=== PATIENT | female | born 1970 ===

== ENCOUNTER 2020-08-16 11:26 | Outpatient (REF) | payer OTHER, SELFPAY ==
[2020-08-16 13:46] LABS: Estimated Average Glucose 269 mg/dL
== END 2020-08-16 11:27 | disposition home or self-care (01) ==
LOC: HO.10HDL 11:26
PROVIDERS: PCP Physician Assistant; Visit Provider Internal Medicine
DX: G89.4 Chronic pain syndrome (principal); M47.812 Spondylosis without myelopathy or radiculopathy, cervical region; M47.816 Spondylosis without myelopathy or radiculopathy, lumbar region
CPT/HCPCS: 36415; 83036; 99202

== ENCOUNTER → 2020-08-26 09:39 | Outpatient (BNVA) | payer OTHER, SELFPAY | PROVIDERS: PCP Physician Assistant; Visit Provider Internal Medicine | DX: G89.4 Chronic pain syndrome (principal) | CPT/HCPCS: 99212 ==

== ENCOUNTER 2020-09-13 11:22 | Outpatient (REF) | payer OTHER, SELFPAY | END 2020-09-13 11:23 | disposition home or self-care (01) | LOC: HO.LAB 11:22 | PROVIDERS: PCP Physician Assistant; Visit Provider Internal Medicine | DX: G89.4 Chronic pain syndrome (principal); Z79.899 Other long term (current) drug therapy | CPT/HCPCS: 99212 ==

== ENCOUNTER → 2020-10-07 11:32 | Outpatient (BNVA) | payer OTHER, SELFPAY | PROVIDERS: PCP Physician Assistant; Visit Provider Internal Medicine | DX: M47.817 Spondylosis without myelopathy or radiculopathy, lumbosacral region (principal); M54.16 Radiculopathy, lumbar region | CPT/HCPCS: 99212 ==

== ENCOUNTER → 2020-11-04 11:30 | Outpatient (BNVA) | payer OTHER, SELFPAY | PROVIDERS: PCP Physician Assistant; Visit Provider Internal Medicine | DX: G89.4 Chronic pain syndrome (principal) | CPT/HCPCS: 99212 ==

== ENCOUNTER → 2020-12-06 09:44 | Outpatient (BNVA) | payer OTHER, SELFPAY | PROVIDERS: PCP Physician Assistant; Visit Provider Internal Medicine | DX: Z76.0 Encounter for issue of repeat prescription (principal); G89.4 Chronic pain syndrome; M47.27 Other spondylosis with radiculopathy, lumbosacral region; E11.9 Type 2 diabetes mellitus without complications; Z88.0 Allergy status to penicillin; Z79.84 Long term (current) use of oral hypoglycemic drugs; Z79.899 Other long term (current) drug therapy | CPT/HCPCS: 99212 ==

== ENCOUNTER → 2020-12-13 11:30 | Outpatient (BNVA) | payer OTHER, SELFPAY | PROVIDERS: PCP Physician Assistant; Visit Provider Internal Medicine | DX: M47.27 Other spondylosis with radiculopathy, lumbosacral region (principal); M79.18 Myalgia, other site; Z88.0 Allergy status to penicillin | CPT/HCPCS: 20553 ==

== ENCOUNTER → 2020-12-30 11:37 | Outpatient (BNVA) | payer OTHER, SELFPAY | PROVIDERS: Visit Provider Internal Medicine | DX: M47.817 Spondylosis without myelopathy or radiculopathy, lumbosacral region (principal); M54.16 Radiculopathy, lumbar region; G89.4 Chronic pain syndrome; Z51.81 Encounter for therapeutic drug level monitoring | CPT/HCPCS: 99212 ==

== ENCOUNTER → 2021-01-27 11:29 | Outpatient (BNVA) | payer OTHER, SELFPAY | PROVIDERS: Visit Provider Internal Medicine | DX: Z51.81 Encounter for therapeutic drug level monitoring (principal); M79.18 Myalgia, other site; G89.4 Chronic pain syndrome | CPT/HCPCS: 99212 ==

== ENCOUNTER → 2021-02-24 11:29 | Outpatient (BNVA) | payer OTHER, SELFPAY | PROVIDERS: Visit Provider Internal Medicine | DX: Z51.81 Encounter for therapeutic drug level monitoring (principal); F11.20 Opioid dependence, uncomplicated; M47.817 Spondylosis without myelopathy or radiculopathy, lumbosacral region; M79.18 Myalgia, other site | CPT/HCPCS: 99212 ==

== ENCOUNTER → 2021-03-28 10:55 | Outpatient (BNVA) | payer OTHER, SELFPAY | PROVIDERS: PCP Physician Assistant; Visit Provider Internal Medicine | DX: Z51.81 Encounter for therapeutic drug level monitoring (principal); M47.817 Spondylosis without myelopathy or radiculopathy, lumbosacral region; M79.18 Myalgia, other site; M54.16 Radiculopathy, lumbar region | CPT/HCPCS: 99212 ==

== ENCOUNTER → 2021-04-25 11:30 | Outpatient (BNVA) | payer OTHER, SELFPAY | PROVIDERS: PCP Physician Assistant; Visit Provider Internal Medicine | DX: M47.817 Spondylosis without myelopathy or radiculopathy, lumbosacral region (principal); M79.18 Myalgia, other site; M54.16 Radiculopathy, lumbar region; M25.512 Pain in left shoulder; M54.2 Cervicalgia; G89.4 Chronic pain syndrome | CPT/HCPCS: 99212 ==

== ENCOUNTER → 2021-05-23 11:01 | Outpatient (BNVA) | payer OTHER, SELFPAY | PROVIDERS: PCP Physician Assistant; Visit Provider Nurse Practitioner Family | DX: Z13.89 Encounter for screening for other disorder (principal) ==

== ENCOUNTER → 2021-06-16 11:21 | Outpatient (BNVA) | payer OTHER, SELFPAY | PROVIDERS: PCP Physician Assistant; Visit Provider Internal Medicine | DX: Z51.81 Encounter for therapeutic drug level monitoring (principal); Z79.899 Other long term (current) drug therapy | CPT/HCPCS: 99211 ==

== ENCOUNTER → 2021-08-15 11:41 | Outpatient (BNVA) | payer OTHER, SELFPAY | PROVIDERS: PCP Physician Assistant; Visit Provider Nurse Practitioner Family | DX: Z51.81 Encounter for therapeutic drug level monitoring (principal); F11.20 Opioid dependence, uncomplicated | CPT/HCPCS: 99211 ==

== ENCOUNTER → 2021-10-17 11:02 | Outpatient (BNVA) | payer OTHER, SELFPAY | PROVIDERS: PCP Physician Assistant; Visit Provider Internal Medicine | DX: G89.4 Chronic pain syndrome (principal) | CPT/HCPCS: 99212 ==

== ENCOUNTER → 2021-12-12 10:58 | Outpatient (BNVA) | payer OTHER, SELFPAY | PROVIDERS: PCP Physician Assistant; Visit Provider Internal Medicine | DX: Z51.81 Encounter for therapeutic drug level monitoring (principal); F11.20 Opioid dependence, uncomplicated; M79.18 Myalgia, other site; M25.512 Pain in left shoulder; M54.2 Cervicalgia; G89.4 Chronic pain syndrome | CPT/HCPCS: 99212 ==

== ENCOUNTER → 2022-04-17 11:00 | Outpatient (BNVA) | payer OTHER, SELFPAY | PROVIDERS: PCP Physician Assistant; Visit Provider Internal Medicine | DX: Z51.81 Encounter for therapeutic drug level monitoring (principal); F11.20 Opioid dependence, uncomplicated; G89.4 Chronic pain syndrome | CPT/HCPCS: 99212 ==

== ENCOUNTER → 2022-06-12 11:01 | Outpatient (BNVA) | payer OTHER, SELFPAY | PROVIDERS: PCP Physician Assistant; Visit Provider Internal Medicine | DX: Z51.81 Encounter for therapeutic drug level monitoring (principal); Z79.899 Other long term (current) drug therapy | CPT/HCPCS: 99211 ==

== ENCOUNTER → 2022-08-07 11:04 | Outpatient (BNVA) | payer OTHER, SELFPAY | PROVIDERS: PCP Physician Assistant; Visit Provider Internal Medicine | DX: Z51.81 Encounter for therapeutic drug level monitoring (principal); F11.20 Opioid dependence, uncomplicated; M54.16 Radiculopathy, lumbar region; M47.817 Spondylosis without myelopathy or radiculopathy, lumbosacral region; M79.18 Myalgia, other site; M54.2 Cervicalgia; G89.4 Chronic pain syndrome | CPT/HCPCS: 99212 ==

== ENCOUNTER 2022-10-09 11:08 | Outpatient (AMB) | payer OTHER, SELFPAY ==
--- NOTE | 2022-10-09 11:21 | A.OFFVIS_ITS ---
Intake Vital Signs 10/09/22 11:22 Height 5 ft 5 in Weight 198 lb BMI 32.9 BP 145/82 H Blood Pressure Location Lt brachial Position Sitting Respiration 14 Pulse 83 Pulse Source Pulse Oximeter Intake Visit Reasons: Med count Allergies penicillin G Allergy (Verified 06/12/22 11:07) unknown Medication List - Last Reconciled 10/09/22 by Nancy Winn LPN albuterol sulfate 90 mcg/actuation 2 puffs inhalation Q6H PRN aspirin 81 mg PO DAILY atorvastatin 40 mg PO DAILY buprenorphine HCl (Belbuca) 900 mcg buccal Q12H 30 days buspirone 10 mg PO BID calcium carbonate-vitamin D3 200 mg (500 mg) -400 unit tabs PO .twice a day calcium carbonate-vitamin D3 600 mg-10 mcg (400 unit) 1 tab PO BID cetirizine (Zyrtec) 10 mg PO DAILY PRN chlorzoxazone 500 mg PO TID conj estrog-medroxyprogest amrit 0.625-2.5 mg (Prempro) 1 tab PO DAILY docusate sodium 100 mg PO BID dulaglutide (Trulicity) 0.75 mg subcut QWEEK fluoxetine 20 mg PO DAILY fluticasone furoate-vilanterol 200-25 mcg/dose (Breo Ellipta) 1 inh inhalation DAILY losartan 25 mg PO DAILY metformin ER 1,000 mg PO BID mometasone 50 mcg/actuation 2 sprays intranasal DAILY montelukast 10 mg PO DAILY nabumetone 750 mg PO BID PRN 30 days olmesartan 20 mg PO BEDTIME HPI Med count HPI Details 52-year-old female presenting today for a medication count. 52 films were expected, and 51 films were presented. The patient underwent a CT scan that was ordered by her primary care physician. She has been experiencing back and leg pain. She reports worsening pain with walking. She has difficulty lying down on the bed for prolonged periods of time. She has been using a recliner at home. She suspects that the pain is from her sciatica. She states that she was physically active in the past but is now unable to walk or perform exercises due to pain. Her pain is alleviated by sitting down or bending forward on the cart. She states that her pain worsens when standing from the sitting position. She recently started taking Trulicity. [facility]MERLY [facility], [facility] Medical History (Updated 04/25/21 @ 11:48 by Dontrell Don MD) Left shoulder pain Lumbar and sacral spondyloarthritis Lumbar radiculopathy Myofascial pain on left side Neck pain on left side Review of Systems Const All systems reviewed & are unremarkable except as noted in HPI and below Physical Exam Vital Signs: Last Vital Signs Pulse 83 10/09/22 11:22 Resp 14 10/09/22 11:22 BP 145/82 H 10/09/22 11:22 BMI result Body Mass Index 32.9 General: Appears afebrile. Alert and oriented. Mood and affect appropriate. Follows and participates in conversation appropriately. Respiratory effort is unlabored. Able to transition from sit to stand unassisted. Ambulates with bilaterally normal heel strike and toe off. Results Reviewed Results Reviewed: CT LUMBAR SPINE WITHOUT CONTRAST FINDINGS: Moderate left convex curvature of the lumbar spine. Mild right lateral translation of L1 on L2. Mild left lateral translation of L4 on L5. Otherwise, normal anatomic alignment. No evidence of acute fracture or traumatic subluxation. The vertebral body heights are maintained. Advanced degenerative disc disease at L4-L5. Moderate degenerative disc disease at all additional lumbar levels. No suspicious lytic or sclerotic osseous lesions. No significant abnormalities of the paraspinal musculature. There is a 1.6 cm lesion with macroscopic adipose tissue associated with the medial arm of the right adrenal gland consistent with underlying myelolipoma (no follow-up imaging recommended based on current guidelines at the time of examination). Partially visualized 0.8 cm nonobstructive stone in the lower pole the left kidney. Moderate right-sided perinephric cysts without demonstrated overt hydronephrosis (no follow-up imaging recommended based on current guidelines at the time of examination). Otherwise, limited evaluation of the intra-abdominal structures without significant abnormalities. The abdominal aorta is of normal contour and caliber with moderate calcific atherosclerotic disease. AXIAL SPINAL LEVELS: L1-L2: Mild diffuse disc bulge. There is mild bilateral facet joint arthropathy. There is no neural foraminal stenosis. There is no spinal canal stenosis. L2-L3: Mild diffuse disc bulge with posterior osseous ridging. There is mild bilateral facet joint arthropathy. There is mild right and no left neural foraminal stenosis. There appears to be stenosis of the subarticular zones with no overt spinal canal stenosis centrally. L3-L4: Moderate diffuse disc bulge with posterior osseous ridging. There is moderate bilateral facet joint arthropathy. There is moderate right worse than left neural foraminal stenosis. There appears to be stenosis of the subarticular zones with moderate spinal canal stenosis centrally. L4-L5: Moderate diffuse disc bulge with posterior osseous ridging. There is moderate bilateral facet joint arthropathy. There is mild bilateral neural foraminal stenosis. There appears to be narrowing of the subarticular zones with no overt spinal canal stenosis centrally. L5-S1: Mild diffuse disc bulge. There is moderate left and mild right facet joint arthropathy. There is moderate left and mild right neural foraminal stenosis. There is no demonstrated spinal canal stenosis. IMPRESSION: 1. No evidence of acute fracture or traumatic subluxation of the lumbar spine. 2. Moderate multilevel degenerative spondyloarthropathy of the lumbar spine as described in detail above. Most notably on this limited exam without intrathecal contrast, there appears to be moderate spinal canal stenosis at L3-L4. Stenoses/stenoses of the subarticular zones at L2-L3 and L4-L5. Moderate neural foraminal stenoses from L3-S1. 3. Partially visualized nonobstructive left-sided nephrolithiasis. Assessment & Plan Assessment & Plan (1) Neck pain on left side: Code(s): M54.2 - Cervicalgia (2) Left shoulder pain: Code(s): M25.512 - Pain in left shoulder (3) Lumbar and sacral spondyloarthritis: Code(s): M47.817 - Spondylosis without myelopathy or radiculopathy, lumbosacral region (4) Lumbar radiculopathy: Code(s): M54.16 - Radiculopathy, lumbar region (5) Chronic pain syndrome: Code(s): G89.4 - Chronic pain syndrome Plan 1. 52 films were expected, and 51 films were presented. A refill of Buprenorphine HCL 900 mcg was provided to the patient for one month starting 10/08/22 with 1 refill. Mass Pat was consistent. 2. Discussed MILD procedure at L3-4 levels vs. spinal cord stimulator as possible treatment options. A device brochure was provided to the patient. The patient will let us know if she wants to proceed with either of these modalities. We can consider MR imaging at that point prior to any interventional procedure. Scribed for Dr. Don by Abraham Jarvis, durable medical equipment repairer, on 10/09/2022. I, Dr. Don, have personally reviewed and agree with the information entered by the scribe. Medications: Refilled buprenorphine HCl (Belbuca) 900 mcg buccal Q12H 60 ea 1RF pain 30 days G89.4 - Chronic pain syndrome, M47.817 - Spondylosis without myelopathy or radiculopathy, lumbosacral region Coding Level of Care Code Est Pt Level 4 (46798) Diagnoses Neck pain on left side M54.2 Left shoulder pain M25.512 Lumbar and sacral spondyloarthritis M47.817 Lumbar radiculopathy M54.16 Chronic pain syndrome G89.4
[2022-10-09 11:22] VITALS: BP 145/82; PULSE 83; RESP 14; BMI 32.9
== END 2022-10-09 11:47 | disposition home or self-care (01) ==
PROVIDERS: PCP Physician Assistant; Visit Provider Internal Medicine
DX: M54.2 Cervicalgia (principal); M25.512 Pain in left shoulder; M47.817 Spondylosis without myelopathy or radiculopathy, lumbosacral region; M54.16 Radiculopathy, lumbar region; G89.4 Chronic pain syndrome
CPT/HCPCS: 99214

== ENCOUNTER → 2022-10-09 11:08 | Outpatient (BNVA) | payer OTHER, SELFPAY | PROVIDERS: PCP Physician Assistant; Visit Provider Internal Medicine | DX: M47.27 Other spondylosis with radiculopathy, lumbosacral region (principal); M79.18 Myalgia, other site; G89.4 Chronic pain syndrome; M25.512 Pain in left shoulder; M54.2 Cervicalgia; Z79.891 Long term (current) use of opiate analgesic | CPT/HCPCS: 99212 ==

== ENCOUNTER 2022-12-11 11:00 | Outpatient (AMB) | payer OTHER, SELFPAY ==
--- NOTE | 2022-12-11 11:03 | A.OFFVIS_ITS ---
Intake Vital Signs 12/11/22 11:04 Height 5 ft 5 in Weight 197 lb BMI 32.8 Blood Pressure Location Lt brachial Position Sitting Respiration 14 Pulse Source Pulse Oximeter Oxygen Delivery Method Room Air Intake Visit Reasons: Med count Intake Note: Pt states she last took Belbuca 12/11/22 @ 8:30am Allergies penicillin G Allergy (Verified 12/11/22 11:06) unknown Medication List - Last Reconciled 12/11/22 by Nancy Winn LPN albuterol sulfate 90 mcg/actuation 2 puffs inhalation Q6H PRN aspirin 81 mg PO DAILY atorvastatin 40 mg PO DAILY buprenorphine HCl (Belbuca) 900 mcg buccal Q12H 30 days buspirone 10 mg PO BID calcium carbonate-vitamin D3 200 mg (500 mg) -400 unit tabs PO .twice a day calcium carbonate-vitamin D3 600 mg-10 mcg (400 unit) 1 tab PO BID cetirizine (Zyrtec) 10 mg PO DAILY PRN chlorzoxazone 500 mg PO TID conj estrog-medroxyprogest amrit 0.625-2.5 mg (Prempro) 1 tab PO DAILY docusate sodium 100 mg PO BID dulaglutide (Trulicity) 0.75 mg subcut QWEEK fluoxetine 20 mg PO DAILY fluticasone furoate-vilanterol 200-25 mcg/dose (Breo Ellipta) 1 inh inhalation DAILY losartan 25 mg PO DAILY metformin ER 1,000 mg PO BID mometasone 50 mcg/actuation 2 sprays intranasal DAILY montelukast 10 mg PO DAILY nabumetone 750 mg PO BID PRN 30 days olmesartan 20 mg PO BEDTIME HPI Med count HPI Details 52-year-old female who presents today to the office for a medication count. 46 films were expected, and 47 films wer e presented. A refill was provided to the patient today. [facility] Medical History (Updated 04/25/21 @ 11:48 by Dontrell Don MD) Neck pain on left side Left shoulder pain Myofascial pain on left side Lumbar radiculopathy Lumbar and sacral spondyloarthritis Review of Systems Const All systems reviewed & are unremarkable except as noted in HPI and below Physical Exam Vital Signs: Last Vital Signs Resp 14 12/11/22 11:04 Oxygen Delivery Method Room Air 12/11/22 11:04 BMI result Body Mass Index 32.8 General: Appears afebrile. Alert and oriented. Mood and affect appropriate. Follows and participates in conversation appropriately. Respiratory effort is unlabored. Able to transition from sit to stand unassisted. Ambulates with bilaterally normal heel strike and toe off. Results Reviewed Results Reviewed: No imaging is available for review. Assessment & Plan Assessment & Plan (1) Chronic pain syndrome: Code(s): G89.4 - Chronic pain syndrome (2) Lumbar and sacral spondyloarthritis: Code(s): M47.817 - Spondylosis without myelopathy or radiculopathy, lumbosacral region Plan 46 films were expected, and 47 films were presented. Mass Pat was consistent. A refill of Buprenorphine HCL 900 mcg was provided to the patient for one month starting 01/03/23 with 1 refill. The patient will follow up in two months for pill count. Scribed for Dr. Don by Abraham Jarvis, medical data analyst, on 12/11/2022. I, Dr. Don, have personally reviewed and agree with the information entered by the scribe. Medications: Refilled buprenorphine HCl (Belbuca) 900 mcg buccal Q12H 60 ea 1RF pain 30 days G89.4 - Chronic pain syndrome, M47.817 - Spondylosis without myelopathy or radiculopathy, lumbosacral region Coding Level of Care Code Est Pt Level 3 (53127) Diagnoses Chronic pain syndrome G89.4 Lumbar and sacral spondyloarthritis M47.817
[2022-12-11 11:04] VITALS: RESP 14; BMI 32.8
== END 2022-12-11 11:18 | disposition home or self-care (01) ==
PROVIDERS: PCP Physician Assistant; Visit Provider Internal Medicine
DX: G89.4 Chronic pain syndrome (principal); M47.817 Spondylosis without myelopathy or radiculopathy, lumbosacral region
CPT/HCPCS: 99213

== ENCOUNTER → 2022-12-11 11:00 | Outpatient (BNVA) | payer OTHER, SELFPAY | PROVIDERS: PCP Physician Assistant; Visit Provider Internal Medicine | DX: G89.4 Chronic pain syndrome (principal); M47.817 Spondylosis without myelopathy or radiculopathy, lumbosacral region; Z79.891 Long term (current) use of opiate analgesic | CPT/HCPCS: 99212 ==

== ENCOUNTER → 2023-02-10 11:09 | Outpatient (BNVA) | payer OTHER, SELFPAY | PROVIDERS: PCP Physician Assistant; Visit Provider Internal Medicine ==

== ENCOUNTER 2023-04-16 10:55 | Outpatient (AMB) | payer OTHER, SELFPAY ==
--- NOTE | 2023-04-16 11:03 | MHC.OFFVIS ---
Intake Vital Signs 04/16/23 11:04 Height 5 ft 5 in Weight 201 lb BMI 33.4 BP 140/86 H Blood Pressure Location Lt brachial Position Sitting Respiration 12 Pulse 93 Pulse Source Pulse Oximeter Pulse Oximetry (%) 98 Oxygen Delivery Method Room Air Intake Visit Reasons: Medication Count Allergies penicillin G Allergy (Verified 12/11/22 11:06) unknown HPI Medication Count HPI Details 52-year-old female who presents today to the office for a medication count. 37 films were expected, and 38 films were presented. A refill was provided to the patient today. She reports the worsening of her radiating pain. She has difficulty lying down and sleeping at night. She states that her pain keeps her awake at night. She used to sleep in the prone position in the past, but she has been unable to do so since her surgery. She also has difficulty walking. She needs a caregiver at home. She also requested a prescription for a cane. She previously had difficulty receiving her prescription from the pharmacy. [facility] Medical History (Updated 04/25/21 @ 11:48 by Dontrell Don MD) Neck pain on left side Left shoulder pain Myofascial pain on left side Lumbar radiculopathy Lumbar and sacral spondyloarthritis Review of Systems Const All systems reviewed & are unremarkable except as noted in HPI and below Physical Exam Vital Signs: Last Vital Signs Pulse 93 04/16/23 11:04 Resp 12 04/16/23 11:04 BP 140/86 H 04/16/23 11:04 Pulse Ox 98 04/16/23 11:04 Oxygen Delivery Method Room Air 04/16/23 11:04 BMI result Body Mass Index 33.4 General: Appears afebrile. Alert and oriented. Mood and affect appropriate. Follows and participates in conversation appropriately. Respiratory effort is unlabored. Able to transition from sit to stand unassisted. Ambulates with bilaterally normal heel strike and toe off. Results Reviewed Results Reviewed: No imaging is available for review. Assessment & Plan Assessment & Plan (1) Chronic pain syndrome: Code(s): G89.4 - Chronic pain syndrome (2) Lumbar and sacral spondyloarthritis: Code(s): M47.817 - Spondylosis without myelopathy or radiculopathy, lumbosacral region Plan 37 films were expected, and 38 films were presented. Mass Pat was consistent. A refill of Buprenorphine HCL 900 mcg was provided to the patient for one month starting 05/04/23 with [address] Don by Abraham Jarvis, medical equipment technician, on 04/16/2023. I, Dr. Don, have personally reviewed and agree with the information entered by the scribe. Medications: Refilled buprenorphine HCl (Belbuca) 900 mcg buccal Q12H 30 days 60 ea 1RF pain G89.4 - Chronic pain syndrome, M47.817 - Spondylosis without myelopathy or radiculopathy, lumbosacral region buprenorphine HCl (Belbuca) 900 mcg buccal Q12H 60 ea 1RF pain 30 days G89.4 - Chronic pain syndrome, M47.817 - Spondylosis without myelopathy or radiculopathy, lumbosacral region Coding Level of Care Code Est Pt Level 3 (48626) Diagnoses Chronic pain syndrome G89.4 Lumbar and sacral spondyloarthritis M47.817
[2023-04-16 11:04] VITALS: BP 140/86; PULSE 93; RESP 12; O2SAT 98; BMI 33.4
== END 2023-04-16 11:23 | disposition home or self-care (01) ==
PROVIDERS: PCP Physician Assistant; Visit Provider Internal Medicine
DX: G89.4 Chronic pain syndrome (principal); M47.817 Spondylosis without myelopathy or radiculopathy, lumbosacral region
CPT/HCPCS: 99213

== ENCOUNTER → 2023-04-16 10:55 | Outpatient (BNVA) | payer OTHER, SELFPAY | PROVIDERS: PCP Physician Assistant; Visit Provider Internal Medicine | DX: G89.4 Chronic pain syndrome (principal); M47.817 Spondylosis without myelopathy or radiculopathy, lumbosacral region; Z79.891 Long term (current) use of opiate analgesic | CPT/HCPCS: 99212 ==

== ENCOUNTER 2023-06-11 10:58 | Outpatient (AMB) | payer OTHER, SELFPAY ==
--- NOTE | 2023-06-11 11:01 | A.OFFVIS_ITS ---
Vital Signs 06/11/23 11:03 Height 5 ft 5 in Weight 199 lb BMI 33.1 BP 149/73 H Blood Pressure Location Lt brachial Position Sitting Respiration 13 Pulse 92 Pulse Source Pulse Oximeter Pulse Oximetry (%) 98 Oxygen Delivery Method Room Air Intake Visit Reasons: Follow-Up // Pill Count Intake Note: Pt states she last took Belbuca 06/11/23 @ 8:30am Allergies penicillin G Allergy (Verified 06/11/23 11:04) unknown Medication List - Last Reconciled 06/11/23 by Nancy Winn LPN albuterol sulfate 90 mcg/actuation 2 puffs inhalation Q6H PRN aspirin 81 mg PO DAILY atorvastatin 40 mg PO DAILY buprenorphine HCl (Belbuca) 900 mcg buccal Q12H 30 days buspirone 10 mg PO BID calcium carbonate-vitamin D3 200 mg (500 mg) -400 unit tabs PO .twice a day calcium carbonate-vitamin D3 600 mg-10 mcg (400 unit) 1 tab PO BID cetirizine (Zyrtec) 10 mg PO DAILY PRN chlorzoxazone 500 mg PO TID conj estrog-medroxyprogest amrit 0.625-2.5 mg (Prempro) 1 tab PO DAILY docusate sodium 100 mg PO BID dulaglutide (Trulicity) 0.75 mg subcut QWEEK fluoxetine 20 mg PO DAILY fluticasone furoate-vilanterol 200-25 mcg/dose (Breo Ellipta) 1 inh inhalation DAILY losartan 25 mg PO DAILY metformin ER 1,000 mg PO BID mometasone 50 mcg/actuation 2 sprays intranasal DAILY montelukast 10 mg PO DAILY nabumetone 750 mg PO BID PRN olmesartan 20 mg PO BEDTIME HPI HPI Follow-Up // Pill Count: Details: 52-year-old female who presents today to the office for a follow-up and pill count. 42 films were expected, and 45 films were presented. She continues to have low back and leg pain. She states that since the rectification of the restriction, she has had no difficulty receiving her refills. [facility]MERLY [facility] Medical History (Updated 04/25/21 @ 11:48 by Dontrell Don MD) Neck pain on left side Left shoulder pain Myofascial pain on left side Lumbar radiculopathy Lumbar and sacral spondyloarthritis Review of Systems Const All systems reviewed & are unremarkable except as noted in HPI and below Physical Exam Vital Signs: Last Vital Signs Pulse 92 06/11/23 11:03 Resp 13 06/11/23 11:03 BP 149/73 H 06/11/23 11:03 Pulse Ox 98 06/11/23 11:03 Oxygen Delivery Method Room Air 06/11/23 11:03 BMI result Body Mass Index 33.1 General: Appears afebrile. Alert and oriented. Mood and affect appropriate. Follows and participates in conversation appropriately. Respiratory effort is unlabored. Able to transition from sit to stand unassisted. Ambulates with bilaterally normal heel strike and toe off. Results Reviewed Results Reviewed: No imaging is available for review. Assessment & Plan Assessment & Plan (1) Chronic pain syndrome: Code(s): G89.4 - Chronic pain syndrome Category: Medical (2) Lumbar radiculopathy: Code(s): M54.16 - Radiculopathy, lumbar region Category: Medical (3) Neck pain on left side: Code(s): M54.2 - Cervicalgia Category: Medical (4) Left shoulder pain: Code(s): M25.512 - Pain in left shoulder Category: Medical Plan 42 films were expected, and 45 films were presented. Mass Pat was consistent. A refill of Buprenorphine HCL 900 mcg was provided to the patient starting 07/02/23 with 1 refill. The patient will follow up in two months. Scribed for Dr. Don by Abraham Jarvis, medical office asst, on 06/11/2023. I, Dr. Don, have personally reviewed and agree with the information entered by the scribe. Medications: Refilled buprenorphine HCl (Belbuca) 900 mcg buccal Q12H 60 ea 1RF pain 30 days G89.4 - Chronic pain syndrome, M47.817 - Spondylosis without myelopathy or ra diculopathy, lumbosacral region
[2023-06-11 11:03] VITALS: BP 149/73; PULSE 92; RESP 13; O2SAT 98; BMI 33.1
== END 2023-06-11 11:14 | disposition home or self-care (01) ==
PROVIDERS: PCP Physician Assistant; Visit Provider Internal Medicine
DX: G89.4 Chronic pain syndrome (principal); M54.16 Radiculopathy, lumbar region; M54.2 Cervicalgia; M25.512 Pain in left shoulder
CPT/HCPCS: 99213

== ENCOUNTER → 2023-06-11 10:58 | Outpatient (BNVA) | payer OTHER, SELFPAY | PROVIDERS: PCP Physician Assistant; Visit Provider Internal Medicine | DX: G89.4 Chronic pain syndrome (principal); M54.16 Radiculopathy, lumbar region; M54.2 Cervicalgia; M25.512 Pain in left shoulder; Z79.891 Long term (current) use of opiate analgesic | CPT/HCPCS: 99212 ==

== ENCOUNTER 2023-08-06 11:03 | Outpatient (AMB) | payer OTHER, MEDICAID, SELFPAY ==
--- NOTE | 2023-08-06 11:05 | A.OFFVIS_ITS ---
Vital Signs 08/06/23 11:08 Height 5 ft 5 in Weight 200 lb BMI 33.3 BP 138/72 Blood Pressure Location Rt brachial Position Sitting Respiration 14 Pulse 96 Pulse Source Pulse Oximeter Pulse Oximetry (%) 98 Oxygen Delivery Method Room Air Intake Visit Reasons: PILL COUNT Intake Note: Pt states she last took Belbuca 08/06/23 @ 8:30am Allergies penicillin G Allergy (Verified 08/06/23 11:09) unknown Medication List - Last Reconciled 08/06/23 by Nancy Winn LPN albuterol sulfate 90 mcg/actuation 2 puffs inhalation Q6H PRN aspirin 81 mg PO DAILY atorvastatin 40 mg PO DAILY buprenorphine HCl (Belbuca) 900 mcg buccal Q12H 30 days buspirone 10 mg PO BID calcium carbonate-vitamin D3 200 mg (500 mg) -400 unit tabs PO .twice a day calcium carbonate-vitamin D3 600 mg-10 mcg (400 unit) 1 tab PO BID cetirizine (Zyrtec) 10 mg PO DAILY PRN chlorzoxazone 500 mg PO TID conj estrog-medroxyprogest amrit 0.625-2.5 mg (Prempro) 1 tab PO DAILY docusate sodium 100 mg PO BID dulaglutide (Trulicity) 0.75 mg subcut QWEEK fluoxetine 20 mg PO DAILY fluticasone furoate-vilanterol 200-25 mcg/dose (Breo Ellipta) 1 inh inhalation DAILY losartan 25 mg PO DAILY metformin ER 1,000 mg PO BID mometasone 50 mcg/actuation 2 sprays intranasal DAILY montelukast 10 mg PO DAILY nabumetone 750 mg PO BID PRN olmesartan 20 mg PO BEDTIME HPI HPI PILL COUNT: Details: 53-year-old female who presents today to the office for a pill count. 53?films were expected, and 59?films were presented. She continues to experience pain. She takes a hot shower to relieve neck and back pain. She is once again started to experience worsening symptoms in the left side. Previously she had a good response to physical therapy for these symptoms but towards the end physical therapy program she felt that her PT pushed her too much leading to significant discomfort and pain. She would like to return to physical therapy but at a gentler pace without pushing too much which may exacerbate her symptoms. [facility] Medical History (Updated 04/25/21 @ 11:48 by Dontrell Don MD) Neck pain on left side Left shoulder pain Myofascial pain on left side Lumbar radiculopathy Lumbar and sacral spondyloarthritis Review of Systems Const All systems reviewed & are unremarkable except as noted in HPI and below Physical Exam Vital Signs: Last Vital Signs Pulse 96 08/06/23 11:08 Resp 14 08/06/23 11:08 BP 138/72 08/06/23 11:08 Pulse Ox 98 08/06/23 11:08 Oxygen Delivery Method Room Air 08/06/23 11:08 BMI result Body Mass Index 33.3 General: Appears afebrile. Alert and oriented. Mood and affect appropriate. Follows and participates in conversation appropriately. Respiratory effort is unlabored. Able to transition from sit to stand unassisted. Ambulates with bilaterally normal heel strike and toe off. Results Reviewed Results Reviewed: No imaging is available for review. Assessment & Plan Assessment & Plan (1) Neck pain on left side: Code(s): M54.2 - Cervicalgia Category: Medical (2) Left shoulder pain: Code(s): M25.512 - Pain in left shoulder Category: Medical (3) Myofascial pain on left side: Code(s): M79.18 - Myalgia, other site Category: Medical Plan 53?films were expected, and 59?films were presented. Mass Pat was consistent. A refill of Buprenorphine HCL 900 mcg was provided to the patient. A referral was provided to physical therapy. A script was also provided to the patient for physical therapy. The patient will receive a call to schedule an appointment. Follow up in two months. Scribed for Dr. Don by Abraham Jarvis, medical technologist generalist, on 08/06/2023. I, Dr. Don, have personally reviewed and agree with the information entered by the scribe. Orders: Orders PT Evaluation and Treatment 08/06/23 M25.512 - Pain in left shoulder, M54.2 - Cervicalgia, M79.18 - Myalgia, other site Medications: Refilled buprenorphine HCl (Belbuca) 900 mcg buccal Q12H 60 ea 1RF pain 30 days G89.4 - Chronic pain syndrome, M47.817 - Spondylosis without myelopathy or radiculopathy, lumbosacral region Coding Level of Care Code Est Pt Level 4 (63229) Diagnoses Neck pain on left side M54.2 Left shoulder pain M25.512 Myofascial pain on left side M79.18
[2023-08-06 11:08] VITALS: BP 138/72; PULSE 96; RESP 14; O2SAT 98; BMI 33.3
== END 2023-08-06 11:30 | disposition home or self-care (01) ==
PROVIDERS: PCP Physician Assistant; Visit Provider Internal Medicine
DX: M54.2 Cervicalgia (principal); M25.512 Pain in left shoulder; M79.18 Myalgia, other site
CPT/HCPCS: 99214

== ENCOUNTER → 2023-08-06 11:03 | Outpatient (BNVA) | payer OTHER, SELFPAY | PROVIDERS: PCP Physician Assistant; Visit Provider Internal Medicine | DX: M54.2 Cervicalgia (principal); M25.512 Pain in left shoulder; M79.18 Myalgia, other site; Z79.891 Long term (current) use of opiate analgesic | CPT/HCPCS: 99212 ==

== ENCOUNTER 2023-10-01 11:08 | Outpatient (AMB) | payer OTHER, SELFPAY ==
--- NOTE | 2023-10-01 11:12 | A.OFFVIS_ITS ---
Vital Signs 10/01/23 11:26 Height 5 ft 5 in Weight 201 lb 4 oz BMI 33.5 BP 162/71 H Blood Pressure Location Rt brachial Position Sitting Pulse 85 Pulse Source Pulse Oximeter Pulse Oximetry (%) 97 Oxygen Delivery Method Room Air Intake Visit Reasons: PILL COUNT Intake Note: Teetee comes in today for a film count to [facility], should have 4 films and presents with 3 films which she last took today 10/01/23 at 8:30am. Pain today 12/15 Director Radio News Required: No Accompanied by: Self / Same As Patient Allergies penicillin G Allergy (Verified 10/01/23 11:28) unknown HPI HPI PILL COUNT: Details: 53-year-old female who presents today to the office for a pill count. She states that there was some mix up in her prescription as she was on vacation. She waited for five days for her refill, and in the meantime, she went to the pharmacy and received a two-day supply. She reports worsening of the lower back pain and leg pain down to her feet for the past five weeks. She has difficulty lying down and sleeping at night. She has severe pain walking and standing. She has been using a cane. She has been lying down on the recliner. She states that her leg gave up while climbing down the stairs two weeks ago at home. She has gait imbalance issues. She has been following up with her primary care physician every three months to monitor diabetes mellitus. She states that last time she had a cortisone injection, her blood glucose level was elevated. She had an injection that might be a Toradol injection from another pain management, which provided good relief. She is claustrophobic and cannot do an MRI scan. She also requested a letter for excusing her from jury duty. [facility] Medical History (Updated 04/25/21 @ 11:48 by Dontrell Don MD) Neck pain on left side Left shoulder pain Myofascial pain on left side Lumbar radiculopathy Lumbar and sacral spondyloarthritis Review of Systems Const All systems reviewed & are unremarkable except as noted in HPI and below Physical Exam Vital Signs: Last Vital Signs Pulse 85 10/01/23 11:26 BP 162/71 H 10/01/23 11:26 Pulse Ox 97 10/01/23 11:26 Oxygen Delivery Method Room Air 10/01/23 11:26 BMI result Body Mass Index 33.5 General: Appears afebrile. Alert and oriented. Mood and affect appropriate. Follows and participates in conversation appropriately. Respiratory effort is unlabored. Able to transition from sit to stand unassisted. Ambulates with bilaterally normal heel strike and toe off. Results Reviewed Results Reviewed: No imaging is available for review. Assessment & Plan Assessment & Plan (1) Lumbar radiculopathy: Code(s): M54.16 - Radiculopathy, lumbar region Category: Medical (2) Chronic pain syndrome: Code(s): G89.4 - Chronic pain syndrome Category: Medical Plan Pill Count and Mass Pat were consistent. A refill of Buprenorphine HCL 900 mcg was provided to the patient starting 11/03/2023. Discussed cortisone injection vs non steroid interventional procedures as possible treatment options for her pain, but she declined. She has previously declined physical therapy because it made her symptoms worse. She expressed frustration about not knowing ?what is wrong with her?. I offered to order an MRI for her lumbar spine, but she declined that because of claustrophobia. She stated that she is unable to tolerate even an open MRI. She also requested a letter for excusing her from jury duty; I informed her that I will provide it after discussing with our legal department. Patient expressed understanding. Scribed for Dr. Don by Abraham Jarvis, director medical writing, on 10/01/2023. I, Dr. Don, have personally reviewed and agree with the information entered by the scribe. Medications: Refilled buprenorphine HCl (Belbuca) 900 mcg buccal Q12H 30 days 60 ea 1RF pain G89.4 - Chronic pain syndrome, M47.817 - Spondylosis without myelopathy or radiculopathy, lumbosacral region Coding Level of Care Code Est Pt Level 4 (85655) Diagnoses Lumbar radiculopathy M54.16 Chronic pain syndrome G89.4
[2023-10-01 11:26] VITALS: BP 162/71; PULSE 85; O2SAT 97; BMI 33.5
== END 2023-10-01 11:38 | disposition home or self-care (01) ==
PROVIDERS: PCP Physician Assistant; Visit Provider Internal Medicine
DX: G89.4 Chronic pain syndrome (principal); M54.16 Radiculopathy, lumbar region; Z79.891 Long term (current) use of opiate analgesic
CPT/HCPCS: 99214

== ENCOUNTER → 2023-10-01 11:08 | Outpatient (BNVA) | payer OTHER, SELFPAY | PROVIDERS: PCP Physician Assistant; Visit Provider Internal Medicine | DX: G89.4 Chronic pain syndrome (principal); M54.16 Radiculopathy, lumbar region; Z79.891 Long term (current) use of opiate analgesic | CPT/HCPCS: 99212 ==

== ENCOUNTER 2023-12-03 11:04 | Outpatient (AMB) | payer OTHER, SELFPAY ==
[2023-12-03 11:12] VITALS: BP 130/77; PULSE 95; O2SAT 98; BMI 33.1
--- NOTE | 2023-12-03 11:12 | A.OFFVIS_ITS ---
Vital Signs 12/03/23 11:12 Height 5 ft 5 in Weight 199 lb BMI 33.1 BP 130/77 Blood Pressure Location Rt brachial Position Sitting Pulse 95 Pulse Source Pulse Oximeter Pulse Oximetry (%) 98 Oxygen Delivery Method Room Air Intake Visit Reasons: Pill Count Allergies penicillin G Allergy (Verified 12/03/23 11:13) unknown Medication List - Last Reconciled 12/03/23 by Steph Cruz albuterol sulfate 90 mcg/actuation 2 puffs inhalation Q6H PRN aspirin 81 mg PO DAILY atorvastatin 40 mg PO DAILY buprenorphine HCl (Belbuca) 900 mcg buccal Q12H 30 days buspirone 10 mg PO BID calcium carbonate-vitamin D3 200 mg (500 mg) -400 unit tabs PO .twice a day calcium carbonate-vitamin D3 600 mg-10 mcg (400 unit) 1 tab PO BID cetirizine (Zyrtec) 10 mg PO DAILY PRN chlorzoxazone 500 mg PO TID conj estrog-medroxyprogest amrit 0.625-2.5 mg (Prempro) 1 tab PO DAILY docusate sodium 100 mg PO BID dulaglutide (Trulicity) 0.75 mg subcut QWEEK fluoxetine 20 mg PO DAILY fluticasone furoate-vilanterol 200-25 mcg/dose (Breo Ellipta) 1 inh inhalation DAILY losartan 25 mg PO DAILY metformin ER 1,000 mg PO BID mometasone 50 mcg/actuation 2 sprays intranasal DAILY montelukast 10 mg PO DAILY nabumetone 750 mg PO BID PRN olmesartan 20 mg PO BEDTIME HPI Comments Details: Teetee presents to the office for follow up chronic pain and chronic medication management. Patient is prescribed Belbuca 900 mcg, 1 film twice daily as needed. Patient arrived today with the expectation of having 2 films, she presented 1 film which were counted in the presence of two staff members and returned to the patient in the original prescription container. This demonstrates responsible attitude toward patient's opioid medications. Pain is reported today as 5/10 and last dose of pain medication was taken at 09: 00 this morning. Patient denies side effects including somnolence, constipation, itching, dyspnea, rash, dizziness or weakness. [facility] Medical History (Updated 04/25/21 @ 11:48 by Dontrell Don MD) Neck pain on left side Left shoulder pain Myofascial pain on left side Lumbar radiculopathy Lumbar and sacral spondyloarthritis Review of Systems Const All systems reviewed & are unremarkable except as noted in HPI and below Physical Exam Vital Signs: Last Vital Signs Pulse 95 12/03/23 11:12 BP 130/77 12/03/23 11:12 Pulse Ox 98 12/03/23 11:12 Oxygen Delivery Method Room Air 12/03/23 11:12 BMI result Body Mass Index 33.1 General: awake, alert, oriented. Answers questions appropriately. Fully engaged in examination. Skin: warm, dry, intact HEENT: Normocephalic. Hearing intact. Cardiac: External chest normal in appearance. Respiratory: No cough, audible wheezing or stridor. Abdomen: without gross distension. MS: No obvious swelling or deformities. Able to transition from sit to stand unassisted. Ambulates with bilaterally normal heel strike and toe off Neurological: Oriented to person, place, time and situation. Thought process intact. Ambulates with the use of a cane Psychiatric: Appropriate mood and affect. Good judgment and insight. Assessment & Plan Assessment & Plan (1) Lumbar radiculopathy: Code(s): M54.16 - Radiculopathy, lumbar region Category: Medical (2) Chronic pain syndrome: Code(s): G89.4 - Chronic pain syndrome Category: Medical Plan Masspat was reviewed and without concerns. No obvious signs of diversion, abuse or misuse of the medications. Will send in prescription for Belbuca 900 mcg film twice daily as needed. Patient is requesting that prescription be sent next week as she is due for fill today and does not want to risk this new prescription cancelling out the existing one. Nabumetone refill sent per patient request Patient to follow-up in the office in 1 month, sooner if needed. All questions and concerns have been answered and patient agrees with the plan. Medications: Refilled nabumetone 750 mg PO BID PRN 60 tabs 5RF for pain G89.4 - Chronic pain syndrome, M25.512 - Pain in left shoulder, M47.817 - Spondylosis without myelopathy or radiculopathy, lumbosacral region Coding Level of Care Code Est Pt Level 4 (92956) Complex EM visit Add On G2211 Diagnoses Lumbar radiculopathy M54.16 Chronic pain syndrome G89.4
== END 2023-12-03 11:35 | disposition home or self-care (01) ==
PROVIDERS: PCP Physician Assistant; Visit Provider Registered Nurse Emergency
DX: G89.4 Chronic pain syndrome (principal); M54.16 Radiculopathy, lumbar region
CPT/HCPCS: 99214; G2211

== ENCOUNTER → 2023-12-03 11:04 | Outpatient (BNVA) | payer OTHER, SELFPAY | PROVIDERS: PCP Physician Assistant; Visit Provider Internal Medicine | DX: G89.4 Chronic pain syndrome (principal); M54.16 Radiculopathy, lumbar region; Z79.891 Long term (current) use of opiate analgesic | CPT/HCPCS: 99212 ==

== ENCOUNTER 2024-01-28 10:54 | Outpatient (AMB) | payer OTHER, SELFPAY ==
--- NOTE | 2024-01-28 10:56 | MHC.OFFVIS ---
Vital Signs 01/28/24 10:58 Height 5 ft 5 in Weight 199 lb BMI 33.1 BP 145/81 H Blood Pressure Location Lt brachial Position Sitting Respiration 15 Pulse 86 Pulse Source Pulse Oximeter Pulse Oximetry (%) 99 Oxygen Delivery Method Room Air Intake Visit Reasons: Pill Count Allergies penicillin G Allergy (Verified 01/28/24 11:02) unknown Medication List - Last Reconciled 01/28/24 by Nancy Winn LPN albuterol sulfate 90 mcg/actuation 2 puffs inhalation Q6H PRN aspirin 81 mg PO DAILY atorvastatin 40 mg PO DAILY buprenorphine HCl (Belbuca) 900 mcg buccal Q12H 30 days buspirone 10 mg PO BID calcium carbonate-vitamin D3 200 mg (500 mg) -400 unit tabs PO .twice a day calcium carbonate-vitamin D3 600 mg-10 mcg (400 unit) 1 tab PO BID cetirizine (Zyrtec) 10 mg PO DAILY PRN chlorzoxazone 500 mg PO TID conj estrog-medroxyprogest amrit 0.625-2.5 mg (Prempro) 1 tab PO DAILY docusate sodium 100 mg PO BID dulaglutide (Trulicity) 0.75 mg subcut QWEEK fluoxetine 20 mg PO DAILY fluticasone furoate-vilanterol 200-25 mcg/dose (Breo Ellipta) 1 inh inhalation DAILY losartan 25 mg PO DAILY metformin ER 1,000 mg PO BID mometasone 50 mcg/actuation 2 sprays intranasal DAILY montelukast 10 mg PO DAILY nabumetone 750 mg PO BID PRN olmesartan 20 mg PO BEDTIME HPI HPI Pill Count: Details: 53-year-old female who presents to the office today for a pill count. While in the office today, she continues to report pain in her lower back and legs. No changes in her health since we last met. She did not end up going for physical therapy as it had worsened her symptoms in the past. [facility] Medical History (Updated 04/25/21 @ 11:48 by Dontrell Don MD) Neck pain on left side Left shoulder pain Myofascial pain on left side Lumbar radiculopathy Lumbar and sacral spondyloarthritis Review of Systems Const All systems reviewed & are unremarkable except as noted in HPI and below Physical Exam Vital Signs: Last Vital Signs Pulse 86 01/28/24 10:58 Resp 15 01/28/24 10:58 BP 145/81 H 01/28/24 10:58 Pulse Ox 99 01/28/24 10:58 Oxygen Delivery Method Room Air 01/28/24 10:58 BMI result Body Mass Index 33.1 General: Appears afebrile. Alert and oriented. Mood and affect appropriate. Follows and participates in conversation appropriately. Respiratory effort is unlabored. Able to transition from sit to stand unassisted. Ambulates with bilaterally normal heel strike and toe off. Results Reviewed Results Reviewed: No imaging is available for review. Assessment & Plan Assessment & Plan (1) Chronic pain syndrome: Code(s): G89.4 - Chronic pain syndrome Category: Medical Plan 2 films were expected and 9 were presented. Film count was consistent. She has an upcoming refill next week. She was advised to fill her her upcoming script first and we will send the following refill for the next 2 months afterwards to avoid prescription discrepancies. Patient is in agreement. Scribed for Dr. Don by Manuela Fritz medical office technology instructor, on 01/28/2024. I, Dr. Don, have personally reviewed and agree with the information entered by the scribe. Coding Level of Care Code Est Pt Level 3 (60940) Diagnoses Chronic pain syndrome G89.4
[2024-01-28 10:58] VITALS: BP 145/81; PULSE 86; RESP 15; O2SAT 99; BMI 33.1
== END 2024-01-28 11:34 | disposition home or self-care (01) ==
PROVIDERS: PCP Physician Assistant; Visit Provider Internal Medicine
DX: G89.4 Chronic pain syndrome (principal); Z79.891 Long term (current) use of opiate analgesic
CPT/HCPCS: 99213

== ENCOUNTER → 2024-01-28 10:54 | Outpatient (BNVA) | payer OTHER, SELFPAY | PROVIDERS: PCP Physician Assistant; Visit Provider Internal Medicine | DX: G89.4 Chronic pain syndrome (principal); Z79.891 Long term (current) use of opiate analgesic | CPT/HCPCS: 99212 ==

== ENCOUNTER 2024-03-31 11:05 | Outpatient (AMB) | payer OTHER, SELFPAY ==
--- NOTE | 2024-03-31 11:06 | A.OFFVIS_ITS ---
Vital Signs 03/31/24 11:15 Height 55 ft Weight 198 lb BMI 0.3 BP 174/85 H Blood Pressure Location Rt brachial Position Sitting Pulse 94 Pulse Source Pulse Oximeter Intake Visit Reasons: Pill Count Intake Note: Teetee comes in today for a film count to belbuca, patient should have 4 films and presents with 3 films which she last took today 03/31/24 at 9am. Pain today 09/14. Patient resigned opioid contract in office, signed copy of contract was given to patient. 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 Patient is prescribed Belbuca 900 mcg, 1 film twice daily as needed. Patient arrived today with the expectation of having 4 films, she presented 3 films which were counted in the presence of two staff members and returned to the patient in the original prescription container. This demonstrates responsible attitude toward patient's opioid medications. Pain is reported today as 09/14 and last dose of pain medication was taken at 09:00 this morning. Patient denies side effects including somnolence, itching, dyspnea, rash, dizziness or weakness. Does endorse some constipation, taking docusate with minimal improvement. Drinking plenty of water. ON LICENSE OF [facility] Medical History (Updated 04/25/21 @ 11:48 by Dontrell Don MD) Neck pain on left side Left shoulder pain Myofascial pain on left side Lumbar radiculopathy Lumbar and sacral spondyloarthritis Review of Systems Const All systems reviewed & are unremarkable except as noted in HPI and below Physical Exam Vital Signs: Last Vital Signs Pulse 94 03/31/24 11:15 BP 174/85 H 03/31/24 11:15 BMI result Body Mass Index 0.3 General: awake, alert, oriented. Answers questions appropriately. Fully engaged in examination. Skin: warm, dry, intact HEENT: Normocephalic. Hearing intact. Cardiac: External chest normal in appearance. Respiratory: No cough, audible wheezing or stridor. Abdomen: without gross distension. MS: No obvious swelling or deformities. Able to transition from sit to stand unassisted. Ambulates with bilaterally normal heel strike and toe off Neurological: Oriented to person, place, time and situation. Thought process intact. Ambulates with the use of a cane Psychiatric: Appropriate mood and affect. Good judgment and insight. Assessment & Plan Assessment & Plan (1) Lumbar radiculopathy: Code(s): M54.16 - Radiculopathy, lumbar region Category: Medical (2) Chronic pain syndrome: Code(s): G89.4 - Chronic pain syndrome Category: Medical Plan Masspat was reviewed and without concerns. No obvious signs of diversion, abuse or misuse of the medications. Will send in prescription for Belbuca 900 mcg film twice daily as needed. She is requesting that prescription be sent next week as she is due for fill today and does not want to risk this new prescription cancelling out the existing one. She will call the office in 1 week to request refill. No prescription for MiraLax sent. Patient advised on use. Patient to follow-up in the office in 1 month, sooner if needed. All questions and concerns have been answered and patient agrees with the plan. Medications: New polyethylene glycol 3350 (Miralax) Drink plenty of water while taking this medication 17 grams PO DAILY 100 ea 3RF Coding Level of Care Code Est Pt Level 3 (55698) Complex EM visit Add On G2211 Diagnoses Lumbar radiculopathy M54.16 Chronic pain syndrome G89.4
[2024-03-31 11:15] VITALS: BP 174/85; PULSE 94
== END 2024-03-31 11:24 | disposition home or self-care (01) ==
PROVIDERS: PCP Physician Assistant; Visit Provider Registered Nurse Emergency
DX: M54.16 Radiculopathy, lumbar region (principal); G89.4 Chronic pain syndrome
CPT/HCPCS: 99213; G2211

== ENCOUNTER → 2024-03-31 11:05 | Outpatient (BNVA) | payer OTHER, SELFPAY | PROVIDERS: PCP Physician Assistant; Visit Provider Registered Nurse Emergency | DX: G89.4 Chronic pain syndrome (principal); M54.16 Radiculopathy, lumbar region; Z79.891 Long term (current) use of opiate analgesic | CPT/HCPCS: 99212 ==

== ENCOUNTER 2024-05-26 11:23 | Outpatient (AMB) | payer OTHER, SELFPAY ==
--- NOTE | 2024-05-26 11:33 | A.OFFVIS_ITS ---
Vital Signs 05/26/24 11:41 Height 5 ft 5 in Weight 199 lb 4 oz BMI 33.2 BP 150/78 H Blood Pressure Location Rt brachial Position Sitting Pulse 90 Pulse Source Pulse Oximeter Pulse Oximetry (%) 97 Oxygen Delivery Method Room Air Intake Visit Reasons: PILL COUNT Intake Note: Teetee comes in today for a film count to belbuca, patient should have 12 films and presents with 11 films which she last took today 05/26/24 at 8:45am. Pain today 12/15 Services Program Manager Required: No Accompanied by: Self / Same As Patient Allergies penicillin G Allergy (Verified 05/26/24 11:42) unknown HPI Comments Details: Teetee presents to the office for follow up chronic pain and chronic medication management. Patient is prescribed Belbuca 900 mcg, 1 film twice daily as needed. Patient arrived today with the expectation of having 12 films, she presented 11 films which were counted in the presence of two staff members and returned to the patient in the original prescription container. This demonstrates responsible attitude toward patient's opioid medications. Pain is reported today as 12/15 and last dose of pain medication was taken at 08:45 this morning. Patient denies side effects including somnolence, itching, dyspnea, rash, dizziness or weakness. [facility] Medical History (Updated 04/25/21 @ 11:48 by Dontrell Don MD) Neck pain on left side Left shoulder pain Myofascial pain on left side Lumbar radiculopathy Lumbar and sacral spondyloarthritis Review of Systems Const All systems reviewed & are unremarkable except as noted in HPI and below Physical Exam Vital Signs: Last Vital Signs Pulse 90 05/26/24 11:41 BP 150/78 H 05/26/24 11:41 Pulse Ox 97 05/26/24 11:41 Oxygen Delivery Method Room Air 05/26/24 11:41 BMI result Body Mass Index 33.2 General: awake, alert, oriented. Answers questions appropriately. Fully engaged in examination. Skin: warm, dry, intact HEENT: Normocephalic. Hearing intact. Cardiac: External chest normal in appearance. Respiratory: No cough, audible wheezing or stridor. Abdomen: without gross distension. MS: No obvious swelling or deformities. Able to transition from sit to stand unassisted. Neurological: Oriented to person, place, time and situation. Thought process intact. Ambulates with the use of a cane Psychiatric: Appropriate mood and affect. Good judgment and insight. Assessment & Plan Assessment & Plan (1) Lumbar radiculopathy: Code(s): M54.16 - Radiculopathy, lumbar region Category: Medical (2) Chronic pain syndrome: Code(s): G89.4 - Chronic pain syndrome Category: Medical Plan Masspat was reviewed and without concerns. No obvious signs of diversion, abuse or misuse of the medications. Will send in prescription for Belbuca 900 mcg film twice daily as needed 1 refill. Nabumetone refilled per patient request Patient to follow-up in the office in 2 months, sooner if needed. All questions and concerns have been answered and patient agrees with the plan. Medications: Refilled buprenorphine HCl (Belbuca) 900 mcg buccal Q12H 60 ea 1RF pain 30 days G89.4 - Chronic pain syndrome, M47.817 - Spondylosis without myelopathy or radiculopathy, lumbosacral region nabumetone 750 mg PO BID PRN 60 tabs 5RF for pain G89.4 - Chronic pain syndrome, M25.512 - Pain in left shoulder, M47.817 - Spondylosis without myelopathy or radiculopathy, lumbosacral region Coding Level of Care Code Est Pt Level 4 (12516) Complex EM visit Add On G2211 Diagnoses Lumbar radiculopathy M54.16 Chronic pain syndrome G89.4
[2024-05-26 11:41] VITALS: BP 150/78; PULSE 90; O2SAT 97; BMI 33.2
== END 2024-05-26 12:02 | disposition home or self-care (01) ==
LOC: HO.PMC 11:24
PROVIDERS: PCP Physician Assistant; Visit Provider Registered Nurse Emergency
DX: M54.16 Radiculopathy, lumbar region (principal); G89.4 Chronic pain syndrome
CPT/HCPCS: 99214; G2211

== ENCOUNTER → 2024-05-26 11:23 | Outpatient (BNVA) | payer OTHER, SELFPAY | PROVIDERS: PCP Physician Assistant; Visit Provider Registered Nurse Emergency | DX: M54.16 Radiculopathy, lumbar region (principal); G89.4 Chronic pain syndrome; M25.512 Pain in left shoulder; M47.817 Spondylosis without myelopathy or radiculopathy, lumbosacral region; Z51.81 Encounter for therapeutic drug level monitoring; Z79.891 Long term (current) use of opiate analgesic | CPT/HCPCS: 99212 ==

== ENCOUNTER 2024-07-21 11:32 | Outpatient (AMB) | payer OTHER, SELFPAY ==
--- NOTE | 2024-07-21 11:33 | MHC.OFFVIS ---
Vital Signs 07/21/24 11:39 Height 5 ft 5 in Weight 199 lb 8 oz BMI 33.2 BP 138/86 Blood Pressure Location Rt brachial Position Sitting Pulse 113 H Pulse Source Pulse Oximeter Pulse Oximetry (%) 97 Oxygen Delivery Method Room Air Intake Visit Reasons: Pill count/random UDS Intake Note: Teetee comes in today for a film count to belbuca, patient should have 18 films and presents with 19 films which she last took today 07/21/24 at 8:30am. Pain today 11/15 Patient will also have a random UDS today, aware that she will need to go to the lab on the first floor of this building today 07/21/24 before 12pm. 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 Patient is prescribed Belbuca 900 mcg, 1 film twice daily as needed. Patient arrived today with the expectation of having 18 films, she presented 19 films which were counted in the presence of two staff members and returned to the patient in the original prescription container. This demonstrates responsible attitude toward patient's opioid medications. Pain is reported today as 9 and last dose of pain medication was taken at 08:30 this morning. Patient denies side effects including somnolence, itching, dyspnea, rash, dizziness or weakness. Reports recent weather changes have exacerbated the pain. Prior attempts at injections including with steroids and TPI have worsened pain to the point she is not willing to consider at this time. [facility] Medical History (Updated 04/25/21 @ 11:48 by Dontrell Don MD) Neck pain on left side Left shoulder pain Myofascial pain on left side Lumbar radiculopathy Lumbar and sacral spondyloarthritis Review of Systems Const All systems reviewed & are unremarkable except as noted in HPI and below Physical Exam Vital Signs: Last Vital Signs Pulse 113 H 07/21/24 11:39 BP 138/86 07/21/24 11:39 Pulse Ox 97 07/21/24 11:39 Oxygen Delivery Method Room Air 07/21/24 11:39 BMI result Body Mass Index 33.2 General: awake, alert, oriented. Answers questions appropriately. Fully engaged in examination. Skin: warm, dry, intact HEENT: Normocephalic. Hearing intact. Cardiac: External chest normal in appearance. Respiratory: No cough, audible wheezing or stridor. Abdomen: without gross distension. MS: No obvious swelling or deformities. Able to transition from sit to stand unassisted. Neurological: Oriented to person, place, time and situation. Thought process intact. Ambulates with the use of a cane Psychiatric: Appropriate mood and affect. Good judgment and insight. Assessment & Plan Assessment & Plan (1) Lumbar radiculopathy: Code(s): M54.16 - Radiculopathy, lumbar region Category: Medical (2) Chronic pain syndrome: Code(s): G89.4 - Chronic pain syndrome Category: Medical Plan Masspat was reviewed and without concerns. No obvious signs of diversion, abuse or misuse of the medications. Will send in prescription for Belbuca 900 mcg film twice daily as needed 1 refill. Patient sent for Random UDS Patient to follow-up in the office in 2 months, sooner if needed. All questions and concerns have been answered and patient agrees with the plan. Medications: Refilled buprenorphine HCl (Belbuca) 900 mcg buccal Q12H 30 days 60 ea 1RF pain G89.4 - Chronic pain syndrome, M47.817 - Spondylosis without myelopathy or radiculopathy, lumbosacral region buprenorphine HCl (Belbuca) 900 mcg buccal Q12H 30 days 60 ea 1RF pain G89.4 - Chronic pain syndrome, M47.817 - Spondylosis without myelopathy or radiculopathy, lumbosacral region buprenorphine HCl (Belbuca) 900 mcg buccal Q12H 30 days 60 ea 1RF pain G89.4 - Chronic pain syndrome, M47.817 - Spondylosis without myelopathy or radiculopathy, lumbosacral region Coding Level of Care Code Est Pt Level 3 (96769) Complex EM visit Add On G2211 Diagnoses Lumbar radiculopathy M54.16 Chronic pain syndrome G89.4
[2024-07-21 11:39] VITALS: BP 138/86; PULSE 113; O2SAT 97; BMI 33.2
--- OUTSIDE RECORDS SUMMARY | 2024-07-21 11:47 | XMS_ITS | Clinical Summary ---
Author Organization [facility] Address [address] [place] [address] Care Team Providers Care Change Control Analyst Name Role Phone Luly Villatoro PA-C Primary Care Provider Source Comments PLEASE NOTE, if this patient is a minor, it may be UNLAWFUL to discuss sensitive information that is contained in these records (such as FAMILY PLANNING, MENTAL HEALTH or SUBSTANCE ABUSE) with the minor patient's parent or other person without the patient's specific authorization.[facility] Allergies Active Allergy Reactions Criticality Noted Date Comments Cats 06/24/2021 Other reaction(s): severe sinusitis; asthma flare Cyclobenzaprine 06/24/2021 Other reaction(s): rash Dogs 06/24/2021 Other reaction(s): severe sinusitis; asthma flare Dulaglutide Diarrhea 10/28/2022 Diarrhea/vomiting Dust 06/24/2021 Other reaction(s): severe sinusitis; asthma flare Penicillin 06/24/2021 Other reaction(s): EDEMA, swelling Penicillins 02/10/2013 Pollen 06/24/2021 Other reaction(s): severe sinusitis; asthma flare Medications docusate sodium (COLACE) 100 mg capsuleIndication s:Functional constipation Take 1 Capsule by mouth 3 (three) times daily 270 Capsule 2 03/15/19 21 Active chlorzoxazone (PARAFON FORTE) 500 mg tabletIndications :Cervical disc disease,Chronic midline low back pain without sciatica,Pain syndrome, chronic Take 1 Tablet by mouth 3 (three) times daily as needed for muscle spasms 60 Tablet 05/25/19 21 Active nabumetone (RELAFEN) 750 mg tabletIndications :Failed back syndrome of cervical spine TAKE 1 TABLET BY MOUTH TWICE A DAY 180 Tablet 1 09/08/19 21 Active BELBUCA 900 mcg film DISSOLVE 1 FILM BETWEEN THE CHEEK AND GUM EVERY 12 HOURS 09/14/19 21 Active busPIRone (BUSPAR) 10 mg tablet Take 10 mg by mouth 2 (two) times daily [facility]/pharmacy #[id number] [place], [place] [phone] 60.00 Each 1 30 TAKE 1 TABLET BY MOUTH TWICE A DAY Authorized by: ARLETTE LEGGETT 09/16/19 23 Active lancets (FREESTYLE LANCETS) 28 gaugeIndications: Type 2 diabetes mellitus with hyperglycemia, without long-term current use of insulin ([facility]) Use to test blood glucose three times daily. (Freestyle Lancets) 100 Each 05/05/19 24 Active alcohol swabsIndications: Type 2 diabetes mellitus with hyperglycemia, without long-term current use of insulin ([facility]) Use to test blood glucose three times daily. 100 Each 05/05/19 [address] Active aspirin [address] tablet TAKE 1 TABLET BY MOUTH EVERY DAY 90 Tablet 1 08/27/19 24 Active MISCELLANEOUS MEDICAL SUPPLY MISCIndications:L eft lumbar radiculopathy by miscellaneous route daily. Cane, disp 1, lifetime need, dx low back pain 1 Each 10/13/19 24 Active carbamide peroxide (DEBROX) 6.5 % otic solutionIndicatio ns:Impacted cerumen of right ear Place 5 Drops into the right ear 2 (two) times daily 15 mL 10/13/19 24 Active albuterol HFA 90 mcg/actuation inhalerIndication s:Moderate persistent asthma without complication ([facility]) Inhale 2 Puffs into the lungs every 4 (four) hours as needed for shortness of breath or wheezing 18 g 2 10/26/19 24 Active atorvastatin (LIPITOR) 40 mg tabletIndications :Hypercholesterem ia TAKE 1 TABLET BY MOUTH EVERY DAY 90 Tablet 1 11/01/19 24 Active olmesartan (BENICAR) 20 mg tabletIndications :Essential hypertension, benign Take 1 Tablet by mouth every morning for blood pressure 90 Tablet 3 11/29/19 24 Active metFORMIN XR (GLUCOPHAGE-XR) 500 mg 24 hr tabletIndications :Type 2 diabetes mellitus with hyperglycemia, without long-term current use of insulin ([facility]) Take 2 Tablets by mouth 2 (two) times daily with a meal 360 Tablet 3 11/29/19 24 Active montelukast (SINGULAIR) 10 mg tablet TAKE 1 TABLET BY MOUTH EVERYDAY AT BEDTIME 90 Tablet 1 01/24/20 24 Active glipiZIDE (GLUCOTROL XL) 10 mg ER, 24 hour tabletIndications :Type 2 diabetes mellitus with hyperglycemia, without long-term current use of insulin ([facility]) Take 1 Tablet by mouth once daily with breakfast 90 Tablet 1 01/31/20 24 Active FLUoxetine (PROZAC) 20 mg capsuleIndication s:Anxiety and depression Take 1 Capsule by mouth once daily 90 Capsule 3 01/31/20 24 Active BREO ELLIPTA 200-25 mcg/doseIndicatio ns:Moderate persistent asthma without complication ([facility]) INHALE 1 PUFF INTO THE LUNGS ONCE DAILY. 60 Each 3 05/09/19 25 Active cetirizine (ZYRTEC) 10 mg tablet TAKE 1 TABLET BY MOUTH EVERY DAY 90 Tablet 1 05/20/19 25 Active blood sugar diagnostic stripsIndications :Type 2 diabetes mellitus with hyperglycemia, without long-term current use of insulin ([facility]) Use to test blood glucose three times daily. (Freestyle Lite) 100 Each 05/26/19 Active Active Problems Problem Noted Date Diagnosed Date Mixed hyperlipidemia 11/29/2023 Food insecurity 08/11/2022 Financial difficulties 08/11/2022 Housing problems 08/11/2022 Asthma ([facility]) 06/24/2021 Sleep apnea 06/24/2021 Lung nodules 10/18/2020 Overview (10/18/2020): Multiple lung nodules on lung CT. Will need repeat Ct in 3-6 months (02/25 - 04/29) Worker's compensation injury 03/18/2010 03/15/19 Overview (03/15/2020): 03/18/2010 Worker's comp, fell in a client's home. Leaving the home, house was under construction. Had snowed earlier that morning. Stepped on a frozen board and fell. 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 Chronic pain syndrome 08/01/2019 Chronic narcotic use 11/28/2018 Pulmonary nodule, right on CT 12/201705/23/2018 LEFT thyroid nodule 05/23/2018 Overview (07/13/2023): Result type: Phone Msg Result date: February 22, 2019 10:27 EST Result status: Modified Performed by: Marlin Rodriguez MD on February 22, 2019 10:27 EST Encounter info: [id number], [facility], Discharged OutPatient, 02/15/2019 - 02/15/2019 * Final Report * Document Contains Addenda Addendum by Audrey Mcgraw RN on February 22, 2019 10:53:15 EST (Verified) Spoke with pt, advised on benign results and follow up plan. She expressed understanding. Cancelled nurse visit for results on 03/03. RN From: Marlin Rodriguez MD To: Luly Hernandez; Endo & Diabetes - Clinical; Sent: 02/22/2019 10:27:31 EST Hello, Thank you for referring this patient for managment of thyroid nodule. I wanted to inform you that patient underwent uneventful FNA of the thyroid nodule and the cytology was benign. I recommend a follow up USG soft tissue neck in 1 year to monitor the size of the nodules , with Radiogy . I d be happy to see pt back in follow up if there is significant increase in size of nodules or develops concerning features or new symptoms. Please feel free to call me with any concerns. Sincerely, Marlin Rodriguez Result type: US Soft Tissue Head/Neck Result date: June 08, 2018 14:39 EDT Result status: Auth (Verified) Result title: US Soft Tissue Head/Neck Performed by: Hector Chen MD on June 08, 2018 16:35 EDT Verified by: Hector Chen MD on June 08, 2018 16:35 EDT Encounter info: [id number], [facility], 06/08/2018 - * Final Report * Reason For Exam THYROID NODULE RESULT: US Soft Tissue Head/Neck US Soft Tissue Head/Neck INDICATION/CLINICAL QUESTION: THYROID NODULE / Other:. Patient age 47 years. COMPARISON: CT cervical spine 12/06/2017 FINDINGS: RIGHT THYROID LOBE: 5.2 x 1.7 x 1.8 cm, volume 8.3 cc. Diffusely heterogeneous echotexture. No right nodules. LEFT THYROID LOBE: 5.0 x 2.1 x 2.0 cm, volume 11.0 cc. Nodule findings detailed below. Surrounding thyroid demonstrates heterogeneous echotexture. Nodule #1: Mid-gland, 1.8 x 1.5 x 1.2 cm, predominately solid, isoechoic, [id number], ill-defined margin, no echogenic foci. TI-RADS Category 3. Nodule #2: Lower pole, 2.3 x 1.2 x 1.2 cm, predominately solid, slightly hypoechoic, [id number], ill-defined margin, no echogenic foci. TI-RADS Category 4. Small simple cyst noted within the anterior left thyroid. ISTHMUS: Nodule #1: 0.6 x 0.7 x 0.6 cm, predominately solid, hypoechoic, [id number], ill-defined margin, no echogenic foci. TI-RADS Category 4. IMPRESSION: 2.3 cm nodule within left lower pole, TI-RADS Category 4. Correlation with FNA recommended. 1.8 cm nodule in the left mid gland, TI-RADS Category 3. Follow-up ultrasound recommended in one year. 0.7 cm isthmus nodule, TI-RADS Category 4, which does not meet TI-RADS criteria for follow-up. TI-RADS 2017 reference: Susannah FN, Jian WD, Cy EG, et al. ACR Thyroid Imaging, Reporting and Data System (TI-RADS): White Paper of the ACR TI-RADS Committee. J Am Emily Radiol. Volume 14, Issue 5 , 587 - 595. https://doi.org/10.1016/j.jacr.2017.01.046 ACR TI-RADS recommendations: TR1 and TR2: No FNA or follow-up. TR3: FNA if greater than 2.4 cm, follow-up if 1.5-2.4 cm in 1, 3 and 5 years. TR4: FNA if greater than 1.4 cm, follow-up if 1.0-1.4 cm in 1, 2, 3 and 5 years. TR5: FNA if greater than 0.9 cm, follow-up if 0.5-0.9 cm every year for 5 years. TI-RADS calculator: http://tiradscalculator.com/ WSN: [id number] Signature Line Dictated By: Hector Chen MD Dictated Date/Time: 06/08/18 4:35 pm Reviewed By: Hector Chen MD Signed By: Hector Chen MD Signed Date/Time: 06/08/18 4:35 pm Transcribed By: CORIE Transcribed Date/Time: 06/08/18 4:26 pm PTSD (post-traumatic stress disorder) 11/22/2017 Carpal tunnel syndrome of right wrist on EMG 201708/16/2017 Tendinitis of forearm 08/16/2017 Chronic midline low back pain without sciatica 0 05/31/2017 Overview (05/23/2018): CT Lumbar Spine W - 05/12/18 - 1048 HISTORY: The patient is a 47-year-old female with chronic severe low back pain. MRI was unable to be performed due to the patient's claustrophobia. Lumbar myelography was performed immediately prior to this study and post myelography CT scan is now performed. FINDINGS: Helical 2.5 mm axial sections are obtained from the inferior aspect of T12, to the mid sacrum. 3 mm coronal and 3 mm sagittal reconstructions were then obtained. At the T12-L1 level, the disc is of normal appearance without bulge or herniation. The neural foramina are widely patent and there is no spinal stenosis or facet joint disease. At the L1-2 level, there is a mild broad-based posterior disc bulge, without herniation. The neural foramina are widely patent. There is no spinal stenosis or facet joint disease. At the L2-3 level, the disc is of normal appearance without bulge or herniation. The neural foramina are widely patent and there is no spinal stenosis or facet joint disease. At the L3-4 level, there is a large broad-based posterior disc bulge, without focal herniation. This bulge, in conjunction with hypertrophy of the ligamenta flava, results in mild spinal stenosis. The bulging disc mildly compromises the inferior aspects of the neural foramina bilaterally. There is no evidence of facet joint disease. At the L4-5 level, there is severe disc narrowing consistent with degenerative disc disease. There is a mild broad-based posterior disc bulge, without focal herniation. The bulging disc mildly compromises the left neural foramen. There is no evidence of spinal stenosis. There is mild bilateral facet joint disease. At the L5-S1 level, the disc is of normal appearance without bulge or herniation. The neural foramina are widely patent. There is no spinal stenosis or facet joint disease. IMPRESSION: 1. At the T12-L1 level, no abnormality is seen. 2. At the L1-2 level, there is a mild broad-based posterior disc bulge without herniation. 3. At the L2-3 level, no abnormality is seen. 4. At the L3-4 level, there is a large broad-based posterior disc bulge without herniation. There is mild spinal stenosis. The bulging disc mildly compromises the neural foramina bilaterally. 5. At the L4-5 level, there is severe disc narrowing and there is a mild broad- based posterior disc bulge without herniation. The bulging disc mildly compromises the left neural foramen. There is mild bilateral facet joint disease. 6. At the L5-S1 level, no abnormality is seen. Code 25710 Dose reduction techniques utilized including automated exposure control (mA and kVp adjusted according to patient's size). Iterative reconstruction techniques were utilized. [id number] Dictating Physician: BRUCE TAMAYO MD Electronically Signed by: BRUCE TAMAYO MD Dic Date/Time: 05/12/18 1247 Sign date/Time: 05/12/18 1256 Result type: Lumbar Spine 2 or 3 Views Result date: June 03, 2017 11:23 EDT Result status: Auth (Verified) Result title: XR Lumbar Spine 2 or 3 Views Performed by: Nicolas Fernando MD on June 03, 2017 13:57 EDT Verified by: Nicolas Fernando MD on June 03, 2017 13:57 EDT Encounter info: [id number], [facility] Time [facility], 06/03/2017 - 06/03/2017 * Final Report * Reason For Exam lower back pain RESULT: Lumbar Spine 2 or 3 Views Lumbar sacral spine 3 views dated June 03, 2017. Comparison films are from May 04, 2007. History: Back pain. Findings: There is a convex left lumbar scoliosis. There is loss of intravertebral disc space height and osteophyte formation at L4-5. Minimal osteophytes at demonstrated at L1-2. No significant degenerative facet changes are appreciated. Just lateral to the superior endplate of L3 there is a calcification which has the appearance being within the wall of the aorta. Impression: Scoliosis and degenerative changes. The degenerative changes at L45 have progressed from the previous study. No evidence of fracture or dislocation. Examination 34761. Thank you for allowing me to participate in the care of this patient. WSN: [id number] Signature Line Dictated By: Nicolas Fernando MD Dictated Date/Time: 06/03/17 1:57 pm Reviewed By: Nicolas Fernando MD Signed By: Nicolas Fernando MD Signed Date/Time: 06/03/17 1:57 pm Transcribed By: CORIE Transcribed Date/Time: 06/03/17 1:57 pm Lumbar Spine 2 or 3 Views This document has an image Cervicalgia 05/31/2017 Bilateral shoulder pain 05/31/2017 Cervical disc disease s/p surgery 2013-- C4-C6 0 05/31/2017 Overview (05/23/2018): Result type: Cervical Spine 3 Views or Less Result date: June 03, 2017 11:23 EDT Result status: Auth (Verified) Result title: XR Cervical Spine 3 Views or Less Performed by: Nicolas Fernando MD on June 03, 2017 13:55 EDT Verified by: Nicolas Fernando MD on June 03, 2017 13:55 EDT Encounter info: [id number], [facility], One Time OP, 06/03/2017 - 06/03/2017 * Final Report * Reason For Exam s/p surgery RESULT: Cervical Spine 3 Views or Less Cervical spine 3 views dated June 03, 2017. Comparison films are from April 29, 2009. History: Postop study. Findings: The vertebral bodies are normal in height and alignment. Interbody fusion is noted at C4-5 and C5-6. There is loss of intervertebral disc space height and osteophyte formation C6-7. Prevertebral soft tissues are within normal limits. Impression: C4-5 and C5-6 fusion. No evidence of fracture or dislocation. Examination 22213. Thank you for allowing me to participate in the care of this patient. WSN: [id number] Signature Line Dictated By: Nicolas Fernando MD Dictated Date/Time: 06/03/17 1:55 pm Reviewed By: Nicolas Fernando MD Signed By: Nicolas Fernando MD Signed Date/Time: 06/03/17 1:55 pm Transcribed By: CORIE Transcribed Date/Time: 06/03/17 1:55 pm Cervical Spine 3 Views or Less This document has an image Result type: Neurosurgery Correspondence Result date: March 16, 2012 15:08 EST Result status: Auth (Verified) Result title: Correspond Neuro Surg Performed by: Audrey Almodovar on March 16, 2012 15:08 EST Encounter info: [id number], [facility], Office Visit, 03/16/2012 - 03/23/2012 Contributor system: [employer] * Final Report * Correspond Neuro Surg DATE: 03/16/2012 Referring Physician: Adam Cerna M.D. [facility] [phone] [place] [address] Grimm: Mrs. Teetee Montejo is a 41-year-old female who is seen in [facility]'s neurosurgical office today in consultation at the request of Dr. Dakotah Jordan for a second opinion. The patient reports a 2-year history of right neck, shoulder and upper arm pain that began after a work-related injury. 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 She states that the pain begins behind the right ear and extends over the shoulder and scapular region and ceases about the elbow level. She states that initially the pain extended into her forearm, but did improve with physical therapy. She states that the pain has gotten progressively worse and severely limits her activities of daily living at this point. She states that the arm feels weak, most noticeably with shoulder abduction and while carrying things. She states that the left upper extremity has also been bothering her with increased pain and attributes this to confrontation. She denies any numbness or tingling of the extremities. She denies any difficulty or gait disturbances, any bowel or bladder dysfunction, as well as any difficulty with fine finger movements. She has not been to physical therapy in over a year's time and has limited her exercise routine due to the pain. She states that she did receive 1 round of injections in [place] that provided her minimal relief. She states that she had seen Dr. Dakotah Jordan in consultation who had recommended surgery at that time. She reports that she decided to seek a second opinion as she is very wary in considering surgery. Past Medical History: Diabetes, asthma, high blood pressure, hypercholesterolemia, sleep apnea. Allergies: No known drug or food allergies. Medications: 1. Metformin 1000 mg daily. 2. Simvastatin 40 mg daily. 3. Aspirin 81 mg daily. 4. Enalapril 2.5 mg daily. 5. Singulair. 6. Advair. 7. Albuterol. 8. Nasonex. 9. Ibuprofen p.r.n. 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 She states that she does smoke cigarettes on a daily basis and has been smoking approximately a pack per day since the age of 14. She admits to conservative alcohol consumption and denies any significant recreational drug use. Family History: Asthma, CVA, thyroid disease, migraines, diabetes, high blood pressure. 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 She has had LASIK surgery on her left eye in 2009. Review of Systems: A comprehensive 10-point review of systems is negative as per above and reviewed in the patient's health questionnaire filled out at this visit. Physical Examination: Vital Signs: Height is 5 feet 4 inches, weight is 210 pounds, blood pressure is 147/95 in the right arm sitting, and pulse is 87 beats per minute. General Appearance: The patient is a moderately overweight female who appears her stated age, appearing slightly anxious in the examination room, but in no acute distress. Neuro/Musculoskeletal Exam: The patient is awake, alert and oriented x3. Speech is clear and appropriate. His mood and affect are appropriate to situation. Cranial nerves II-XII are grossly intact. Range of motion of the neck is limited most notably with lateral flexion to the left side. Spurling sign is negative. Motor: Strength of the upper extremities and lower extremities is 5/5 throughout. No appreciable weakness is elicited. Sensory is intact throughout the extremities. DTRs: Biceps is 2+ on the right upper extremity, 1+ left upper extremity. Brachioradialis are 1+ bilaterally. The patellars are muted and symmetric as well as Achilles reflexes. There is no clonus. Plantar response is downgoing. Gait: The patient's gait is assessed and is normal without any appreciable instability or weakness. She is able to walk on her heels, toes and tandem walk without difficulty. Fine finger movements are fluid and symmetric. There is no Rodriguez's. The patient appears to be in no degree of cardiopulmonary distress. Imaging: An MRI of the patient's cervical spine was performed on 10/05/11. Of note, the imaging is not as crisp as we are used to due to the patient being unable to tolerate a standard MRI. She received an upper MRI in [place]. Her MRI shows multiple levels of degenerative disc disease as well as multiple levels of central stenosis with varying degrees of foraminal compression or foraminal narrowing . Most notably at the C4-C5 level and C5-C6 level, there is central canal stenosis due to large disc protrusions. At the C6-C7 level, there is also a disc protrusion with left foraminal compromise but without cord compression. Assessment and Plan: Mrs. Teetee Montejo is a very pleasant 41-year-old female who is seen in [facility]'s neurosurgical office today in consultation at the request of Dr. Natan Jordan for a second opinion. Extensive time and care is taken to explain the patient's MRI findings and how they do and do not correlate with her physical exam findings. At this time, this is accomplished with the additional use of spinal models. At this time, we have similar recommendations to what was recommended for the patient from Dr. Jordan. We do recommend a decompression of the C4-C5 and C5-C6 levels with an anterior approach. The risks, benefits, potential complications and typical hospital course are explained to the patient in full. Extra time is taken to reassure the patient of the commonality of the procedure and what can be expected as far as reduction in pain and any potential complications postoperatively. We are essentially offering the patient the same procedure that has been offered to her by Dr. Jordan and the patient has found this to be very reassuring. It is also explained to the patient that this degree of central canal stenosis places her at higher risk than the general population of sustaining a severe spinal cord injury with potential permanent paralysis should she have any sort of traumatic event. We do not think that the patient's symptoms will improve with conservative measures at this point as she has had limited improvement with the usual conservative means in the past. It has been a pleasure taking part in this patient's care. She is going to decide whether or not she should like to proceed with surgery at this point. Please contact our office should you have any questions regarding this consultation or our current recommendations. Again, it has been a pleasure taking part in this patient's care. Sincerely, DocID: [id number] Dictated by: Audrey BATISTA Electronically verified by: Dakotah Newton M.D. 03/31/2012 14:33 Dakotah Newton M.D. P A esc#: [id number] stn cc: Adam Caban M.D. 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 Patient on Morphine ER 30 mgs BID Left nephrolithiasis 02/26/2016 Anxiety and depression 02/26/2016 Hypercholesteremia 02/26/2016 Class 1 obesity due to exces s calories with serious comorbidity and body mass index (BMI) of 33.0 to 33.9 in adult 02/26/2016 Type 2 diabetes mellitus wit h hyperglycemia, without long-term current use of insulin ([facility]) 03/15/2013 Overview (11/29/2023): Glucometer: Freestyle Lite Current Diabetes RX: Metformin ER 500 mg - 2 tablets twice daily Glipizide XL 10 mg daily with breakfast LULA-I/ARB: Olmesartan 20 mg daily Statin: Atorvastatin 40 mg daily Pneumococcal vaccine: PCV20 (11/29/23) Diabetes foot exam: Referral sent on 11/29/23 Diabetes retinal exam: 03/18/23 at [facility] - no diabetic retinopathy. No macular edema. Encounters Date Type Department Care Team Description 07/11/2024 11:00 AM EDT Office Visit [facility] [place] [address] CortésPooja Encounter for dental examination and cleaning without abnormal findings (Primary Dx); Disturbance of salivary secretion from Last 3 Months Immunizations Immunization Administration Dates Next Due Flu, Preservative Free 02/26/2016 PFIZER COVID VACCINE, PURPLE CAP, 12+ 01/22/2021 ,12/25/2020 PNEUMOCOCCAL CONJUGATE PCV 20 (Prevnar) 11/29/19 24 TDAP 02/26/2016 Social History Tobacco Use Types Packs/Day Years Used Date Smoking Tobacco: Every Day Cigarettes Smokeless Tobacco: Never Tobacco Cessation:Ready to Q uit: Not Asked; Counseling Given: Not Answered Alcohol Use Standard Drinks/Week Comments Yes 0 (1 standard drink = 0.6 oz pur e alcohol) occassionally Social Connections Answer Date Recorded Connectedness 1 12/23/2023 Financial Resource Strain Answer Date R ecorded Financial Resource Strain 2 2023 Stress Answer Date Recorded Stress 1 12/23/2023 Physical Activity Answer Date Recorded Physical Activity 0 10/24/2018 Food Insecurity Answer Date Recorded Food 2 12/23/2023 Transportation Needs Answer Date Record ed Transportation 1 12/23/2023 Housing Stability Answer Date Recorded Housing 1 12/23/2023 Safety and Environment Answer Date Jaron rded Safety 1 05/11/2023 Utilities Answer Date Recorded Utilities 1 12/23/2023 Employment Answer Date Recorded Stress 0 05/26/2021 Comments No Sex and Gender Information Value Date Recorded Sex Assigned at Female 01/08/2017 8:10 AM PDT Legal Sex Female 11:36 AM PDT Gender Identity Female 01/08/2017 8:10 AM PDT Sexual Orientation Lesbian or Angel 01/11/2017 12 :25 PM PST Last Filed Vital Signs Vital Sign Reading Time Taken Comments Blood Pressure 104/70 11/29/2023 11:19 AM EDT Pulse 88 11/29/2023 11:19 AM EDT Temperature 36.5 ??C (97.7 ??F) 10/13/2023 11:08 AM E DT Respiratory Rate 18 11/29/2023 11:19 AM EDT Oxygen Saturation 97% 11/29/2023 11:19 AM EDT Inhaled Oxygen Concentration - - Weight 90.3 kg (199 lb) 11/29/2023 11:19 AM EDT Height 165.1 cm (5' 5 ) 11/29/2023 11:19 AM EDT Body Mass Index 33.12 11/29/2023 11:19 AM EDT Plan of Treatment Upcoming Encounters Date Type Department Care Team (Late st Contact Info) Description 08/07/2024 11:20 AM EDT Office Visit [facility] [address] [place] [phone] Kwan Ulloa, PharmD [address] [place] [address] 01/11/2025 11:00 AM EST Office Visit [facility] [address] [place] [phone] Pooja Cortés [address] [place] [address] Health Maintenance Due Date Last Done Comments Dental FMX/Pano 1970 CT Colonography 07/19/2015 Colonoscopy 07/19/2015 Colorectal Cancer Screening 07/19/2015 FIT/gFOBT 07/19/2015 Fecal DNA 07/19/2015 Flexible Sigmoidoscopy 07/19/2015 Imm-Zoster, Recombinant (1 of 2) 2020 [id number] ( season) 2023 021, 12/25/2020 Imm-Influenza (#1) 2023 02/26/2016 Depression Monitoring 01/26/2024 10/26/2023 , 08/11/2022, 10/11/2020, Additional history exists Diabetes HbA1c 02/28/2024 11/29/2023, 08/06, 05/05/2023, Additional history exists Alcohol and Drug Screen 03/08/2024 10/26/19 24, 05/05/2023, 08/11/2022, Additional history exists Breast Cancer Screening (Mammogram) 04/14/2024 04/14/2023, 10/14/2020 Urine Albumin Creatinine Rat io Screening 08/22/2024 08/23/2023, 08/11/2022, 02/21/2018, Additional history exists Lipid Screening 09/22/2024 09/23/2023, 06/08/2022, 12/17/2020, Additional history exists Serum Creatinine 09/22/2024 09/23/2023, 08/2022, 12/17/2020, Additional history exists Annual Preventive Care Visit 10/12/202409/2023, 08/11/2022, 12/01/2019, Additional history exists Diabetes Foot Exam 10/12/2024 10/13/2023, 0 07/21/2023, 08/11/2022, Additional history exists Anxiety Screening 10/25/2024 10/26/2023 Tobacco Cessation Counseling (#1) 10/25/2024 023 Dental Prophy 01/13/2025 07/11/2024, 12/06, 05/18/2023, Additional history exists Retinopathy Screening 03/22/2025 03/22/2024 , 03/18/2023, 02/14/2020, Additional history exists Dental BW 07/13/2025 07/11/2024, 12/06, 05/18/2023, Additional history exists Dental Examination 07/13/2025 07/11/2024, 1 , 05/18/2023, Additional history exists Dental Perio Charting 07/13/2025 07/11/2024 , 05/18/2023, 05/14/2022 Imm-DTaP/Tdap/Td (2 - Td or Tdap) 02/25/2026 016 Cervical Cancer Screening 11/11/2026 HPV Screening 11/11/2026 11/11/2021, 09/02/2016 Pap + HPV 11/11/2026 11/11/2021, 08/07, 09/02/2016 Pap Smear 11/11/2026 11/11/2021, 08/07, 09/02/2016 HIV Screening Completed 08/29/2018 Hepatitis C Screening Completed 08/29/2018 Imm-Pneumococcal Completed 11/29/2023 Cervical Ablation/Cold-Knife Conization Discontinued Cervical Cryotherapy Discontinued Colposcopy Discontinued Endometrial Biopsy Discontinued Excision/Leep Discontinued HPV Genotyping Discontinued Imm-Hepatitis B Discontinued Vaginal Pap Discontinued Vulvoscopy Discontinued Procedures Procedure Name Priority Date/Time Associated Diagnosis Comments INTRAORAL - PERIAPICAL FIRST RADIOGRAPHIC IMAGE Routine 07/11/2024 11:00 AM EDT Encounter for dental examination and cleaning without abnormal findings PERIODIC ORAL EVALUATION ESTABLISHED PATIENT Routine 07/11/2024 11:00 AM EDT Encounter for dental examination and cleaning without abnormal findings DENTAL CASE MANAGEMENT - MOTIVATIONAL INTV Routine 07/11/2024 11:00 AM EDT Encounter for dental examination and cleaning without abnormal findings PROPHYLAXIS - ADULT Routine 07/11/2024 1 1:00 AM EDT Encounter for dental examination and cleaning without abnormal findings COMP PERIODONTAL EVALUATION - NEW/EST PATIENT Routine 07/11/2024 11:00 AM EDT Encounter for dental examination and cleaning without abnormal findings BITEWINGS - FOUR RADIOGRAPHIC IMAGES Routine 07/11/2024 11:00 AM EDT Encounter for dental examination and cleaning without abnormal findings CARIES RISK ASSESSMENT & DOC FINDING HIGH RISK Routine 07/11/2024 11:00 AM EDT Encounter for dental examination and cleaning without abnormal findings NUTRITIONAL COUNSELING CONTROL OF DENTAL DISEASE Routine 07/11/2024 11:00 AM EDT Encounter for dental examination and cleaning without abnormal findings ORAL HYGIENE INSTRUCTIONS Routine 07/11/2024 11:00 AM EDT Encounter for dental examination and cleaning without abnormal findings ORAL CANCER SCREENING Routine 07/11/2024 11:00 AM EDT Encounter for dental examination and cleaning without abnormal findings CASE PRESENTATION SUBS DTL & EXTENSIVE TX PLN Routine 07/11/2024 11:00 AM EDT Encounter for dental examination and cleaning without abnormal findings REFERRAL SCANNED DOCUMENT 06/29/2024 3:00 AM EDT REFERRAL SCANNED DOCUMENT 05/26/2024 3:00 AM EDT EYE EXAM 03/22/2024 3:00 AM EST HEMOGLOBIN GLYCOSYLATED A1C Routine 11/29/2023 12:13 PM EDT Type 2 diabetes mellitus with hyperglycemia, without long-term current use of insulin ([facility]) COMPREHENSIVE METABOLIC PANEL Routine 09/23/2023 11:43 AM EDT Essential hypertension, benign Moderate persistent asthma without complication Type 2 diabetes mellitus with hyperglycemia, without long-term current use of insulin ([facility]) Acute URI Breast cancer screening by mammogram Colon cancer screening Tobacco use Preventive measure LIPID PANEL Routine 09/23/2023 11:43 AM EDT Essential hypertension, benign Moderate persistent asthma without complication Type 2 diabetes mellitus with hyperglycemia, without long-term current use of insulin ([facility]) Acute URI Breast cancer screening by mammogram Colon cancer screening Tobacco use Preventive measure MICROALBUMIN/CREATINI NE RATIO, URINE, RANDOM Routine 08/23/2023 12:33 PM EDT Type 2 diabetes mellitus with hyperglycemia, without long-term current use of insulin ([facility]) REFERRAL TO PODIATRY Routine 07/21/2023 3:00 AM EDT Type 2 diabetes mellitus with hyperglycemia, without long-term current use of insulin ([facility]) MAMMO DIGITAL SCREEN DIRK W CAD 3D Routine 04/14/2023 3:00 AM EST Breast cancer screening by mammogram PAP SMEAR W/HPV, ABSTRACTED Routine 11/11/2021 ANTIBODY HIV-1&HIV-2 SINGLE RESULT Routine 08/29/2018 3:20 PM EDT Non morbid obesity LEFT thyroid nodule Hypercholesteremia Essential hypertension, benign Uncontrolled type 2 diabetes mellitus with hyperglycemia (HCC-CMS) HEPATITIS A,B,C PANEL Routine 08/29/2018 3:20 PM EDT Non morbid obesity LEFT thyroid nodule Hypercholesteremia Essential hypertension, benign Uncontrolled type 2 diabetes mellitus with hyperglycemia (HCC-CMS) from Last 3 Months or Most Recently Relevant to Health Maintenance Results * REFERRAL SCANNED DOCUMENT (06/29/2024 3:00 AM EDT) Only the most recent of2 resultswithin the time period is included. 06/29/2024 3:00 AM EDT us Luly Villatoro PA-C SCAN REFERRAL Final Result * EYE EXAM (03/22/2024 3:00 AM EST) 03/22/2024 3:00 AM EST Luly Villatoro PA-C OTHER Edited Resul t - Final * (ABNORMAL) HEMOGLOBIN GLYCOSYLATED A1C (11/29/2023 12:13 PM EDT) HEMOGLOBIN A1C 10.5(H) <5.7 % of total Hgb [facility] Comment: For someone without known diabetes, a hemoglobin A1c value of 6.5% or greater indicates that they may have diabetes and this should be confirmed with a follow-up test. For someone with known diabetes, a value <7% indicates that their diabetes is well controlled and a value greater than or equal to 7% indicates suboptimal control. A1c targets should be individualized based on duration of diabetes, age, comorbid conditions, and other considerations. Currently, no consensus exists regarding use of hemoglobin A1c for diagnosis of diabetes for children. ?? Blood Blood / Unknown 11/29/2023 1 2:13 PM EDT 11/29/2023 12:14 PM EDT Narrative [facility] - 11/30/2023 4:49 AM EDT FASTING:NO Kwan Ulloa PharmD LAB - BLOOD DRAW Final Re sult [facility] [address] [place] [address], Call [facility] [address] [address] * (ABNORMAL) LIPID PANEL (09/23/2023 11:43 AM EDT) CHOLESTEROL, TOTAL 208(H) <200 mg/dL [facility] HDL CHOLESTEROL 57 > OR = 50 mg/dL [facility] TRIGLYCERIDES 149 <150 mg/dL [facility] LDL-CHOLESTEROL 125(H) 99 mg/dL (calc) [facility] Comment: Reference range: <100 Desirable range <100 mg/dL for primary prevention; ?? <70 mg/dL for patients with CHD or diabetic patients with > or = 2 CHD risk factors. LDL-C is now calculated using the Bautista calculation, which is a validated novel method providing better accuracy than the Friedewald equation in the estimation of LDL-C. Liam SS et al. VICENTE. 2013;310(19): 2747-3554 (http://education.[employer]/faq/JXG732) CHOL/HDLC RATIO 3.6 <5.0 (calc) [facility] NON-HDL CHOLESTEROL 151(H) <130 mg/dL (calc) [facility] Comment: For patients with diabetes plus 1 major ASCVD risk factor, treating to a non-HDL-C goal of <100 mg/dL (LDL-C of <70 mg/dL) is considered a therapeutic option. Blood Blood / Unknown 09/23/2023 1 1:43 AM EDT 09/23/2023 11:44 AM EDT Narrative [facility] - 09/24/2023 4:20 AM EDT FASTING:NO Luly Villatoro PA-C LAB - BLOOD DRAW Final Resul t [facility] [address] [place] [address], Call [facility] [address] [phone] * (ABNORMAL) COMPREHENSIVE METABOLIC PANEL (09/23/2023 11:43 AM EDT) Pathologist [facility] GLUCOSE 198(H) 65 - 139 mg/dL Call [facility] Comment: ?Non-fasting reference interval UREA NITROGEN (BUN) 13 7 - 25 mg/dL Call [facility] CREATININE (blood) 0.60 0.50 - 1.03 mg/dL Call [facility] EGFR 107 > OR = 60 mL/min/1. 73m2 [facility] BUN/CREATININE RATIO SEE NOTE: Call [facility] Comment: ?? Not Reported: BUN and Creatinine are within ?? reference range. ? SODIUM 138 135 - 146 mmol/L [facility] POTASSIUM 4.7 3.5 - 5.3 mmol/L [facility] CHLORIDE 102 98 - 110 mmol/L Call [facility] CARBON DIOXIDE 22 20 - 32 mmol/L [facility] CALCIUM 9.9 8.6 - 10.4 mg/dL Call [facility] PROTEIN, TOTAL 6.6 6.1 - 8.1 g/dL [facility] ALBUMIN 4.3 3.6 - 5.1 g/dL Call [facility] GLOBULIN 2.3 1.9 - 3.7 g/dL (calc) [facility] ALBUMIN/GLOBULI N RATIO 1.9 1.0 - 2.5 (calc) [facility] BILIRUBIN, TOTAL 0.6 0.2 - 1.2 mg/dL [facility] ALKALINE PHOSPHATASE 65 37 - 153 U/L [facility] AST 19 10 - 35 U/L [facility] ALT 30(H) 6 - 29 U/L [facility] Blood Blood / Unknown 09/23/2023 1 1:43 AM EDT 09/23/2023 11:44 AM EDT Narrative [facility] - 09/24/2023 4:20 AM EDT FASTING:NO us Luly Villatoro PA-C LAB - BLOOD DRAW Edited Resu lt - Final [facility] [address] [address], Call [facility] [address] [place] [address] * MICROALBUMIN/CREATININE RATIO, URINE, RANDOM (08/23/2023 12:33 PM EDT) CREATININE, RANDOM URINE 196 20 - 275 mg/dL [facility] MICROALBUMIN 3.0 mg/dL [employer] [facility] Comment: Reference Range Not established MICROALBUMIN/CREA TININE RATIO, RANDOM URINE 15 <30 mg/g creat Call [facility] Comment: The ADA defines abnormalities in albumin excretion as follows: Albuminuria Category ?Result (mg/g creatinine) Normal to Mildly increased ?? <30 Moderately increased ? 30-299 Severely increased ? > OR = 300 The ADA recommends that at least two of three specimens collected within a 3-6 month period be abnormal before considering a patient to be within a diagnostic category. Urine Urine specimen / Unknown 08/23/2023 12:33 PM EDT 08/23/2023 12:34 PM EDT Narrative [facility] - 08/24/2023 5:24 PM EDT FASTING:NO Kwan Ulloa [facility] LAB - NO BLOOD DRAW Final Result Performing Organization Address [facility] Co de Phone Number [facility] [address] [address], [facility] [address] [address] * REFERRAL TO PODIATRY (07/21/2023 3:00 AM EDT) 07/21/2023 3:00 AM EDT Kwan Ulloa PharmD REFERRAL Edited Re sult - Final * MAMMO DIGITAL SCREEN DIRK W CAD 3D (04/14/2023 3:00 AM EST) 04/14/2023 3:00 AM EST Luly Villatoro PA-C IMG MAMMO Edited Resul t - Final [facility] Corporate Office [address], [address] [place] [address], * PAP SMEAR W/HPV (11/11/2021) PAP SMEAR INTERPRETATION NORMAL NORMAL [facility] HPV (HUMAN PAPILLOMA) NEGATIVE NEGATIVE [facility] HPV TYPE 16 NEGATIVE NEGATIVE [facility] HPV TYPE 18 NEGATIVE NEGATIVE [facility] Swab 11/11/2021 Impressions [facility] - 08/13/2022 7:47 PM EDT ? Result type: Cytology Reports ENGINEERING MANAGER ELECTRON[employer] PAP Test Result date: November 11, 2021 4:35 EDT Result status: Auth (Verified) Result title: Cytology Reports ENGINEERING MANAGER ELECTRON[employer] PAP Test Encounter info: [id number], [facility], [facility], 11/11/2021 - 11/11/2021 Contributor system: ISH * Final Report * Cytology Reports ENGINEERING MANAGER ELECTRONICS PAP Test Patient Name: ? GENIA, TEETEE ? Patient : ? 1970 (Age: 51) Lab Collection Date: 11/11/2021 Accession Date: 11/12/2021 Sign Out Date: 11/14/2021 Tissue Source: 1: THINPREP ENGINEERING MANAGER ELECTRONICS PAP TEST, CERVICAL: Final Diagnosis: NEGATIVE FOR INTRAEPITHELIAL LESION OR MALIGNANCY. Satisfactory for evaluation. ??Endocervical/transformation zone present. Procedures/Addenda: Human Papilloma Virus, High-Risk(Reflex GT) Status: Signed Out Interpretation: Negative Methodology: [employer] Aptima HPV mRNA assay (Nucleic Acid Amplification Test, NAAT) Clinical History: Date of Last Menstrual Period: ?? not available Menstrual History: ?? Post-menopausal Contraceptive History: ??not available Ancillary Testing: ??HPV (Reflex GT) Case imaged by the [employer]. Imaging System with manual rescreening or review. Performed at [facility] Reference Laboratory department of Cytology, Mayco Hurd [place] Clinical History (other): ??z01.419, routine screen Phone #: ??[phone], On-Call Pathologist: ??[id number] us Provider [facility] - NO BLOOD DRAW Final Result [facility] [address] [place] [address], * (ABNORMAL) HEPATITIS A,B,C PANEL (08/29/2018 3:20 PM EDT) HEPATITIS B SURFACE ANTIBODY POSITIVE(A) NEGATIVE [facility] HEPATITIS B SURFACE ANTIGEN NEGATIVE NEGATIVE [facility] Comment: Over the counter supplements containing high doses of biotin may interfere with this assay. ??If interference is suspected, patients shoud be retested after refraining from biotin supplements for 72 hours. HEPATITIS C VIRUS DIAGNOSTIC NEGATIVE NEGATIVE [facility] HEPATITIS B CORE ANTIBODY NEGATIVE NEGATIVE [facility] HEPATITIS A ANTIBODY TOTAL NEGATIVE NEGATIVE [facility] Comment: Over the counter supplements containing high doses of biotin may interfere with this assay. ??If interference is suspected, patients shoud be retested after refraining from biotin supplements for 72 hours. Blood specimen (specimen) Blood / Unknown 08/29/2018 3:20 PM EDT 08/29/2018 3:30 PM EDT [facility] - 08/29/2018 7:18 PM EDT [employer] [address] Order Schedule Clerk - Rubi Nguyen MD [place] [id number] ORD# [id number] us Luly Villatoro PA-C LAB - BLOOD DRAW [place] [address], * HIV-1 & HIV-2 ANTIBODIES (08/29/2018 3:20 PM EDT) [facility] HIV 1 AND 2 ANTIBODY SCREEN NEGATIVE NEGATIVE [facility] Comment: This assay is a 4th generation assay allowing for earlier detection of HIV infection by detecting the presence of the HIV-1 p24 antigen as well as the traditional antibodies to HIV type 1 (including group O) and type 2. ??Use of a 4th generation assay is the current CDC recommendation for HIV screening. Blood specimen (specimen) Blood / Unknown 08/29/2018 3:20 PM EDT 08/29/2018 3:30 PM EDT [facility] - 08/29/2018 7:47 PM EDT [employer] [address] Order Schedule Clerk - Rubi Nguyen MD [place] [id number] ORD# [id number] Luly Villatoro PA-C LAB - BLOOD DRAW Final Resul t [facility] [address] [place] [address], [place] [phone] from Last 3 Months or Most Recently Relevant to Health Maintenance Insurance [facility] [address] ACO Care Teams Change Control Analyst Relationship Specialty Start Date End Date Luly Villatoro PA-C [address] [place] [address] PCP - General Internal Medicine 05/22/21
--- OUTSIDE RECORDS SUMMARY | 2024-07-21 11:47 | XMS_ITS | Encounter Summary ---
Author Organization [facility] Address [address] [place] [address] Care Team Providers Care Rn House Supervisor Name Role Phone Luly Villatoro PA-C Primary Care Provider + [phone] Reason for Referral * Endocrinology (Routine) - Canceled Specialty Diagnoses / Procedures Referred By Contac t Referred To Contact Diagnoses Diabetes mellitus type 2, uncontrolled Guerda José NP [address] [place] [address] Phone: tel: fax: [address] Phone: tel: fax: Referral ID Status Reason Start Date Expiration Date Visits Requested Visits Authorized [id number] Canceled Specialty Services Required 07/10/2014 07/11/2015 6 6 Comments 43 year old female requesting referral to endocrinology for diabetes management. Has new insurance; reports she needs a referral. Encounter Details Date Type Department Care Team (Late st Contact Info) Description 05/29/2014 Interim Notes [facility] [address] [place] [address] Guerda José NP [address] [facility] [place] [id number] Diabetes mellitus type 2, uncontrolled (Primary Dx) Social History Tobacco Use Types Packs/Day Years Used Date Smoking Tobacco: Every Day Cigarettes Alcohol Use Standard Drinks/Week Comments Yes 0 (1 standard drink = 0.6 oz pur e alcohol) occassionally Comments No Sex and Gender Information Value Date Recorded Sex Assigned at Female 01/08/2017 8:10 AM PDT Legal Sex Female 11:36 AM PDT Gender Identity Female 01/08/2017 8:10 AM PDT Sexual Orientation Lesbian or Angel 01/11/2017 12 :25 PM PST documented as of this encounter Plan of Treatment Upcoming Encounters Date Type Department Care Team (Late st Contact Info) Description 08/07/2024 11:20 AM EDT Office Visit [facility] [address] [place] [address] Kwan Ulloa, PharmD [address] [place] [address] 01/11/2025 11:00 AM EST Office Visit [facility] [address] [place] [address] Pooja Cortés [address] [place] [address] Scheduled Referrals Name Type Priority Associated Diagnoses Orde r Schedule REFERRAL TO ENDOCRINOLOGY Referral Routine Diabetes mellitus type 2, uncontrolled Ordered: 05/29/2014 documented as of this encounter Visit Diagnoses Diagnosis Diabetes mellitus type 2, uncontrolled- Primary Type II or unspecified type diabetes mellitus without mention of complication, uncontrolled documented in this encounter Additional Health Concerns Infection Onset Date Last Indicated Resolved Time COVID-19 (rule-out) Comment:Added automatically based on ordered lab. 04/12/2020 04/12/2020 04/15/2020 7:[address] documented as of this encounter Care Teams Rn House Supervisor Relationship Specialty Start Date End Date Luly Villatoro PA-C [address] [place] [address] PCP - General Internal Medicine 05/22/21 documented as of this encounter
--- OUTSIDE RECORDS SUMMARY | 2024-07-21 11:47 | XMS_ITS | Clinical Summary ---
Author Organization 175 [facility] Address [address] [place] [address] Phone Care Team Providers Care Programmer Developer Name Role Phone Luly Villatoro Primary Care Provider [phone] Allergies Active Allergy Reactions Criticality Noted Date Comments Penicillins 10/22/2016 Medications albuterol HFA (PROAIR HFA ; PROVENTIL HFA ; VENTOLIN HFA) 90 mcg/actuation inhaler Inhale 2 Puffs into the lungs every 4 hours as needed. Active aspirin 81 mg EC tablet Take 81 mg by mouth daily. Active atorvastatin (LIPITOR) 40 mg tablet Take 40 mg by mouth daily. Active buprenorphine HCL (Belbuca) [address] 900 mcg inside cheek every 12 hours. Active busPIRone (BUSPAR) 5 mg tablet Take 5 mg by mouth 3 times daily. Active calcium carbonate-vit D3-min 600 mg-10 mcg (400 unit) tablet Take 1 Tab by mouth 2 times daily. Active cetirizine (ZyrTEC) 10 mg capsule Take 1 Tab by mouth daily. Active chlorzoxazone (PARAFON FORTE) 500 mg tablet Take 500 mg by mouth 3 times daily. Active dulaglutide (Trulicity) 0.75 mg/0.5 mL pen injector injection Inject into the skin. Active FLUoxetine (PROzac) 20 mg capsule Take 20 mg by mouth daily. Active fluticasone furoate-vilanter oL (BREO ELLIPTA) 100-25 mcg/dose inhaler Inhale into the lungs. Active fluticasone furoate-vilanter oL (Breo Ellipta) 200-25 mcg/dose inhaler Inhale 1 Puff into the lungs daily. Active losartan (COZAAR) 25 mg tablet Take 25 mg by mouth daily. Active metFORMIN (GLUCOPHAGE) 500 mg tablet 1 Tablet. Active mometasone (NASONEX) 50 mcg/actuation nasal spray 2 Sprays by Each Nare route daily. Active montelukast (SINGULAIR) 10 mg tablet 1 Tablet. Active nabumetone (RELAFEN) 750 mg tablet Take 750 mg by mouth 2 times daily. Active Active Problems Problem Noted Date Diagnosed Date DM (diabetes mellitus) ([place] V24, [facility] V28 ) 01/26/2024 Allergic rhinitis 04/08/2017 Anxiety 04/08/2017 HLD (hyperlipidemia) 04/08/2017 Stenosis of cervical spine 04/08/2017 Asthma 10/22/2016 Encounters Date Type Department Care Team Description 06/29/2024 11:30 AM EDT Office Visit Pulmonolgy [address] [place] [address] Juaquin Barbour MD Mild persistent asthma, unspecified whether complicated (Primary Dx); Tobacco abuse from Last 3 Months Surgical History Surgery Date Site/Laterality Comments NECK SURGERY PROCEDURE: HISTORICAL NECK SURGERY; COMMENT: disketomy C4-6 Medical History Medical History Date Comments Asthma 10/22/2016 DX:Asthma Tobacco user 10/22/2016 DX:Tobacco user DM (diabetes mellitus) ([facility] V24, [facility] V28) DX:DM (diabetes mellitus) (H CC) Anxiety disorder DX:Anxiety diso rder Essential (primary) hypertension DX:Essential (primary) hypertension Left lumbar radiculopathy DX:Lef t lumbar radiculopathy Pulmonary nodule DX:Pulmonary no dule Chronic midline low back faiza n without sciatica DX:Chronic midline low back pain without sciatica Family History Medical History Relation Name Comments Other cancer Brother Prostate cancer Father Other cancer Sister Cervical Relation Name Status Comments Brother Father Sister Social History Tobacco Use Types Packs/Day Years Used Date Smoking Tobacco: Every Day Cigarettes Smokeless Tobacco: Never Tobacco Cessation:Ready to Q uit: Not Asked; Counseling Given: Not Answered Comments:Smoking 15 cigs daily Alcohol Use Standard Drinks/Week Comments Yes 0 (1 standard drink = 0.6 oz pur e alcohol) Comments Unknown Sex and Gender Information Value Date Recorded Sex Assigned at Not on file Legal Sex Female 3:49 AM EST Gender Identity Not on file Sexual Orientation Not on file Obstetrics History Last Filed Vital Signs Vital Sign Reading Time Taken Comments Blood Pressure 128/76 06/29/2024 11:42 AM EDT Pulse 86 06/29/2024 11:42 AM EDT Temperature 36.3 ??C (97.3 ??F) 06/29/2024 11:42 AM E DT Respiratory Rate 16 06/29/2024 11:42 AM EDT Oxygen Saturation 98% 06/29/2024 11:42 AM EDT Inhaled Oxygen Concentration - - Weight 90.5 kg (199 lb 9.6 oz) 06/29/2024 11:42 AM EDT Height 165.1 cm (5' 5 ) 06/29/2024 11:42 AM EDT Body Mass Index 33.22 06/29/2024 11:42 AM EDT Plan of Treatment Upcoming Encounters Date Type Department Care Team (Late st Contact Info) Description 08/10/2024 11:30 AM EDT Appointment [facility] CT Scan [address] [place] [phone] 01/08/2025 9:45 AM EST [facility] [address] [place] [phone] Juaquin Barbour MD 175 [facility] [address] [place] [address] Health Maintenance Due Date Last Done Comments Diabetes: Annual Foot Exam 1980 Diabetes: Annual Retina Eye Exam 1980 Hepatitis B Vaccines (1 of 3 - 19+ 3-dose series) 1989 Cervical Cancer Screening: Pap Smear 07/19/1991 Zoster Vaccines (1 of 2) 2020 Colorectal Cancer Screening: Colonoscopy 02/08/2022 Hepatitis C Screening 02/08/2022 Social Influencers of Health Screening 02/08/2022 Lung Cancer Screening (Low Dose CT) 10/07/2023 10/06/2022 COVID-19 Vaccine ( season) 2023 02/10/2022, 01/22/2021, 12/25/2020 Diabetes: Blood Sugar Control Test (HGBA1C) 05/28/2024 11/29/2023 Diabetes: Annual Urine Albumin-Creatinine Ratio (uACR) 08/22/2024 08/23/2023, 08/11/2022, 02/21/2018 Diabetes: Annual GFR (Glomerular Filtration Rate) 09/22/2024 09/23/2023 Hypertension/CHF/CAD Annual BMP Blood Test 09/22/2024 09/23/2023 Depression Screening 10/25/2024 10/26/2023 Influenza Vaccine (Season Ended) 2024 02/26/2016 Breast Cancer Screening 04/14/2025 04/14/2023 DTaP,Tdap,and Td Vaccines (2 - Td or Tdap) 02/25/2026 02/26/2016 Cholesterol Screening (Lipid Panel) 09/22/2028 09/23/2023, 09/23/2023, 08/11/2022, Additional history exists HIV Screening Completed 08/29/2018 Pneumococcal Vaccine: 50+ Years Completed 11/29/2023 Pneumococcal Vaccine: Pediatrics (0 to 5 Years) and At-Risk Patients (6 to 64 Years) Completed 11/29/2023 HIB Vaccines Aged Out No longer eligi ble based on patient's age to complete this topic HPV Vaccines Aged Out No longer eligi ble based on patient's age to complete this topic Hepatitis A Vaccines Aged Out No long er eligible based on patient's age to complete this topic IPV Vaccines Aged Out No longer eligi ble based on patient's age to complete this topic MMR Vaccines Aged Out No longer eligi ble based on patient's age to complete this topic Meningococcal ACWY Vaccine Aged Out N o longer eligible based on patient's age to complete this topic Meningococcal B Vaccine Aged Out No l onger eligible based on patient's age to complete this topic RSV Immunization Patients Under 20 months Aged Out No longer eligible based on patient's age to complete this topic Varicella Vaccines Aged Out No longer eligible based on patient's age to complete this topic Procedures Procedure Name Priority Date/Time Associated Diagnosis Comments CT LUNG SCREENING LOW DOSE Routine 10/06/2022 12:50 PM EDT Personal history of nicotine dependence from Last 3 Months or Most Recently Relevant to Health Maintenance Results * CT LUNG SCREENING LOW DOSE (10/06/2022 12:50 PM EDT) Anatomical Region Laterality Modality Computed Tomogra phy 10/06/2022 11:3 1 AM EDT Narrative 10/06/2022 12:50 PM EDT [facility] Diagnostic Imaging Department [address] [place] [address] Patient: ??GENIA,TEETEE ?/Age/Sex: 1970 - 52 - F Unit#: ??[id number] ? Location/Status: ??SPDICATLS/REG CLI ? Mnemonic/Ordering Site: ??CTLUNGLD/SPCT Ordering Physician: ??FLORENTINO LUKE MD CT Lung Screening Low Dose - 10/06/22 - 1139 Report Status:Signed History: History of smoking. Cancer screening Comparison: 12/15/2018 Technique: Helical volumetric imaging of the thorax was performed, using low- dose technique, without IV contrast. Iterative reconstruction technique Findings: Mediastinum: Normal sized heart and great vessels. No mediastinal lymphadenopathy. The central airways are clear. Lungs and Airways: Unchanged right middle lobe nodularity measuring 10 x 4 mm. Unchanged 5 mm right apical lung nodule. Abdomen: This study was performed without contrast and with lower than standard dose. These factors reduce the sensitivity for detection of small lesions in the upper abdomen. Soft tissues and bones: Degenerative changes with no acute abnormality. Impression: No suspicious pulmonary nodule. ??Stable pulmonary nodules as above. Lung Rads Category: 2- Benign - Continue annual screening with low-dose CT in 12 months Dictating Physician: ??PRECIOUS CRUM MD Electronically Signed by: ??PRECIOUS CRUM MD Dic Date/Time: ??10/06/22 1246 Sign date/Time: ??10/06/22 1250 Procedure Note Precious Crum MD - 04/13/2023 [facility] Diagnostic Imaging Department [address] [place] [address] Patient: TEETEE MONTEJO /Age/Sex: 1970 - 52 - F Unit#: [id number] Location/Status: [facility] CLI Mnemonic/Ordering Site: [facility] Ordering Physician: FLORENTINO LUKE MD CT Lung Screening Low Dose - 10/06/22 - 1139 Report Status:Signed History: History of smoking. Cancer screening Comparison: 12/15/2018 Technique: Helical volumetric imaging of the thorax was performed, usinglow- dose technique, without IV contrast. Iterative reconstruction technique Findings: Mediastinum: Normal sized heart and great vessels. No mediastinal lymphadenopathy. The central airways are clear. Lungs and Airways: Unchanged right middle lobe nodularity measuring 10 x 4mm. Unchanged 5 mm right apical lung nodule. Abdomen: This study was performed without contrast and with lower thanstandard dose. These factors reduce the sensitivity for detection of small lesionsin the upper abdomen. Soft tissues and bones: Degenerative changes with no acute abnormality. Impression: No suspicious pulmonary nodule. Stable pulmonary nodules as above. Lung Rads Category: 2- Benign - Continue annual screening with low-dose CTin 12 months Dictating Physician: PRECIOUS CRUM MD Electronically Signed by: PRECIOUS CRUM MD Dic Date/Time: 10/06/22 1246 Sign date/Time: 10/06/22 1250 Florentino Luke MD IMG CT PROCEDURES Final Result from Last 3 Months or Most Recently Relevant to Health Maintenance Insurance MEDICAID - [place] Care Teams Programmer Developer Relationship Specialty Start Date End Date Luly Villatoro PA [address] [place] [address] PCP - General Internal Medicine 10/20/17
== END 2024-07-21 11:49 | disposition home or self-care (01) ==
LOC: HO.PMC 11:32
PROVIDERS: PCP Physician Assistant; Visit Provider Registered Nurse Emergency
DX: M54.16 Radiculopathy, lumbar region (principal); G89.4 Chronic pain syndrome
CPT/HCPCS: 99213; G2211

== ENCOUNTER → 2024-07-21 11:32 | Outpatient (BNVA) | payer OTHER, SELFPAY | PROVIDERS: PCP Physician Assistant; Visit Provider Registered Nurse Emergency | DX: M54.16 Radiculopathy, lumbar region (principal); G89.4 Chronic pain syndrome | CPT/HCPCS: 99212 ==

== ENCOUNTER 2024-09-15 10:58 | Outpatient (AMB) | payer OTHER, SELFPAY ==
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
[2024-09-15 11:02] VITALS: BP 132/74; PULSE 92; RESP 16; O2SAT 97; BMI 32.3
--- OUTSIDE RECORDS SUMMARY | 2024-09-15 11:36 | XMS_ITS | Clinical Summary ---
Author Organization 175 [facility] Address [address] [place] [address] Phone Care Team Providers Care Loom Fixer Apprentice Name Role Phone Luly Villatoro Primary Care Provider [phone] Allergies Active Allergy Reactions Criticality Noted Date [...] Noted Date Diagnosed Date DM (diabetes mellitus) ([facility] V24, [facility] V28 ) 01/26/2024 Allergic rhinitis 04/08/2017 Anxiety 04/08/2017 HLD (hyperlipidemia) 04/08/2017 Stenosis of cervical spine 04/08/2017 Asthma 10/22/2016 Encounters Date Type Department Care Team Description 08/10/2024 11:09 AM EDT - 08/10/2024 11:59 PM EDT Hospital Encounter [facility] CT Scan [address] [place] [phone] Encounter for screening for malignant neoplasm of respiratory organs; Nicotine dependence, cigarettes, uncomplicated Discharge Disposition: Home or Self Care 06/29/2024 11:30 AM EDT Office Visit Pulmonolgy - [place] [address] [facility] [address] [place] [phone] Juaquin Barbour MD Mild persistent asthma, unspecified whether complicated (Primary Dx); Tobacco abuse from Last 3 Months Surgical History Surgery Date Site/Laterality Comments NECK SURGERY PROCEDURE: HISTORICAL NECK SURGERY; COMMENT: disketomy C4-6 Medical History Medical History Date Comments Asthma 10/22/2016 DX:Asthma Tobacco user 10/22/2016 DX:Tobacco user DM (diabetes mellitus) ([facility] V24, [facility] V28) DX:DM (diabetes mellitus) (H CC) Anxiety [...] 86 06/29/2024 11:42 AM EDT Temperature 36.3 C (97.3 F) 06/29/2024 11:42 AM EDT Respiratory Rate 16 06/29/2024 11:42 AM EDT Oxygen Saturation 98% 06/29/2024 11:42 AM EDT Inhaled Oxygen Concentration - - Weight 90.5 kg (199 lb 9.6 oz) 06/29/2024 11:42 AM EDT Height 165.1 cm (5' 5 ) 06/29/2024 11:42 AM EDT Body Mass Index 33.22 06/29/2024 11:42 AM EDT Plan of Treatment Upcoming Encounters Date Type Department Care Team (Late st Contact Info) Description 01/08/2025 9:45 AM EST Office Visit Pulmonolgy - [place] [address] [facility] [address] [place] [phone] Juaquin Barbour MD [address] [facility] [address] [place] [address] Health Maintenance Due Date Last Done Comments Diabetes: Annual Foot Exam 1980 Diabetes: Annual Retina Eye Exam 1980 Hepatitis B Vaccines (1 of 3 - 19+ 3-dose series) 1989 Cervical Cancer Screening: Pap Smear 07/19/1991 Zoster Vaccines (1 of 2) 2020 Colorectal Cancer Screening: Colonoscopy 02/08/2022 Hepatitis C Screening 02/08/2022 Social Influencers of Health Screening 02/08/2022 COVID-19 Vaccine ( season) 2023 02/10/2022, 01/22/2021, 12/25/2020 Diabetes: Annual GFR (Glomerular Filtration Rate) 09/22/2024 09/23/2023 Hypertension/CHF/CAD Annual BMP Blood Test 09/22/2024 09/23/2023 Depression Screening 10/25/2024 10/26/2023 Influenza Vaccine (#1) 2024 02/26/2016 Diabetes: Blood Sugar Control Test (HGBA1C) 02/06/2025 08/07/2024, 11/29/2023 Breast Cancer Screening 04/14/2025 04/14/2023 Diabetes: Annual Urine Albumin-Creatinine Ratio (uACR) 08/07/2025 08/07/2024, 08/23/2023, 08/11/2022, Additional history exists Lung Cancer Screening (Low Dose CT) 08/10/2025 08/10/2024, 10/06/2022 DTaP,Tdap,and Td Vaccines (2 - Td or Tdap) 02/25/2026 02/26/2016 Cholesterol Screening (Lipid Panel) 08/07/2029 08/07/2024, 08/07/2024, 09/23/2023, Additional history exists HIV Screening Completed 08/29/2018 Pneumococcal Vaccine: 50+ Years Completed 11/29/2023 Pneumococcal Vaccine: Pediatrics (0 to 5 Years) and At-Risk Patients (6 to 49 Years) Completed 11/29/2023 HIB Vaccines Aged Out [...] Date/Time Associated Diagnosis Comments CT LUNG SCREENING Routine 08/10/2024 11: 22 AM EDT Encounter for screening for malignant neoplasm of respiratory organs Nicotine dependence, cigarettes, uncomplicated from Last 3 Months Results * CT Lung Screening (08/10/2024 11:22 AM EDT) Anatomical Region Laterality Modality Chest Computed Tomogra phy 08/10/2024 1:38 PM EDT Impressions 08/10/2024 1:55 PM EDT Stable small bilateral pulmonary nodules. Lung RADS 2. Guidelines recommend repeat low-dose screening CT in 12 months. -------- FINAL REPORT -------- Dictated By: Eduardo Jean Dictated Date: 08/10/2024 13:38 ET Assigned Physician: Eduardo Jean Reviewed and Electronically Signed By: Eduardo Jean Signed Date: 08/10/2024 13:55 ET Workstation ID: [id number] Transcribed By: Self Edit Transcribed Date: 08/10/2024 13:38 ET Narrative 08/10/2024 1:55 PM EDT PROCEDURE: Low-dose CT of the chest without intravenous contrast. TECHNIQUE: Low-dose CT of the chest without intravenous contrast administration. Coronal and sagittal reformats and MIP reconstructions were created. Dose length product: 115 mGy-cm. HISTORY: Lung cancer screening, >=20 pk yr current smoker (Age 50-80y) COMPARISON: 10/06/2022. FINDINGS: Lungs/pleura: The central airways are clear and normal in caliber. Stable small scattered sub-5 mm calcified and noncalcified pulmonary nodules. Stable 10 x 4 mm curvilinear bandlike opacity in the anterior right middle lobe. No pleural effusion or pneumothorax. Mediastinum/ar: No mediastinal mass or lymphadenopathy. No appreciable hilar lymphadenopathy on limited noncontrast evaluation. Vasculature: Normal caliber pulmonary arteries. Mild atherosclerotic calcifications of the great vessels. Cardiac: Normal heart size. Severe coronary artery calcification. Chest wall: No axillary or supraclavicular lymphadenopathy. Limited abdomen: There is a partially visible calculus in the upper pole of the left kidney measuring at least 8 mm in diameter. Cortical cyst in the anterior upper pole of the left kidney. Bones: Degenerative changes of the spine and shoulders. There is intra-articular gas in the right glenohumeral joint. Procedure Note Eduardo Jean MD - 08/10/2024 PROCEDURE: Low-dose CT of the chest without intravenous contrast. TECHNIQUE: Low-dose CT of the chest without intravenous contrastadministration. Coronal and sagittal reformats and MIP reconstructionswere created. Dose length product: 115 mGy-cm. HISTORY: Lung cancer screening, >=20 pk yr current smoker (Age 50-80y) COMPARISON: 10/06/2022. FINDINGS: Lungs/pleura: The central airways are clear and normal in caliber. Stablesmall scattered sub-5 mm calcified and noncalcified pulmonary nodules.Stable 10 x 4 mm curvilinear bandlike opacity in the anterior right middlelobe. No pleural effusion or pneumothorax. Mediastinum/ar: No mediastinal mass or lymphadenopathy. No appreciablehilar lymphadenopathy on limited noncontrast evaluation. Vasculature: Normal caliber pulmonary arteries. Mild atheroscleroticcalcifications of the great vessels. Cardiac: Normal heart size. Severe coronary artery calcification. Chest wall: No axillary or supraclavicular lymphadenopathy. Limited abdomen: There is a partially visible calculus in the upper poleof the left kidney measuring at least 8 mm in diameter. Cortical cyst inthe anterior upper pole of the left kidney. Bones: Degenerative changes of the spine and shoulders. There isintra-articular gas in the right glenohumeral joint. IMPRESSION: Stable small bilateral pulmonary nodules. Lung RADS 2. Guidelines recommend repeat low-dose screening CT in 12months. -------- FINAL REPORT -------- Dictated By: Eduardo Jean Dictated Date: 08/10/2024 13:38 ET Assigned Physician: Eduardo Jean Reviewed and Electronically Signed By: Eduardo Jean Signed Date: 08/10/2024 13:55 ET Workstation ID: [id number] Transcribed By: Self Edit Transcribed Date: 08/10/2024 13:38 ET Florentino Jose MD [facility] [place]EDURES Final Result from Last 3 Months Insurance MEDICAID - [place] Care Teams Loom Fixer Apprentice Relationship Specialty Start Date End Date Luly Villatoro PA [address] [place] [phone] PCP - General Internal Medicine 10/20/17
--- OUTSIDE RECORDS SUMMARY | 2024-09-15 11:36 | XMS_ITS | Encounter Summary ---
Author Organization [facility] Address [address] [place] [address] Care Team Providers Care Box Lidder Name Role Phone Luly Villatoro PA-C Primary Care Provider [phone] Reason for Referral * Endocrinology (Routine) - Canceled Specialty Diagnoses / Procedures Referred By Levy cintron Referred To Contact Diagnoses Diabetes mellitus type 2, uncontrolled Guerda José NP [address] [place] [address] Phone: tel: fax: [facility] [address] [place] [address] Phone: tel: fax: Referral ID Status Reason Start Date Expiration Date Visits Requested Visits Authorized [id number] Canceled Specialty Services Required 07/10/2014 07/11/2015 6 6 Comments 43 year old female requesting referral to endocrinology for diabetes management. Has new insurance; reports she needs a referral. Encounter Details Date Type Department Care Team (Late st Contact Info) Description 05/29/2014 Interim Notes [facility] [address] [place] [address] Guerda José NP [address] [facility] [place] [address] Social History Tobacco Use Types Packs/Day Years [...] Care Team (Late st Contact Info) Description 01/11/2025 11:00 AM EST Office Visit [facility] [address] [place] [address] Pooja Cortés Raffaele [address] [place] [address] Scheduled Referrals Name Type Priority Associated Diagnoses [...] documented as of this encounter Care Teams Box Lidder Relationship Specialty Start Date End Date uLly Villatoro PA-C [address] [place] [address] PCP - General Internal Medicine 05/22/21 documented as of this encounter
== END 2024-09-15 11:40 | disposition home or self-care (01) ==
LOC: HO.PMC 10:59
PROVIDERS: PCP Physician Assistant; Visit Provider Registered Nurse Emergency
DX: M54.16 Radiculopathy, lumbar region (principal); G89.4 Chronic pain syndrome
CPT/HCPCS: 99213; G2211

== ENCOUNTER → 2024-09-15 10:58 | Outpatient (BNVA) | payer OTHER, SELFPAY | PROVIDERS: PCP Physician Assistant; Visit Provider Registered Nurse Emergency | DX: M54.16 Radiculopathy, lumbar region (principal); G89.4 Chronic pain syndrome | CPT/HCPCS: 99212 ==

== ENCOUNTER 2024-11-17 11:14 | Outpatient (AMB) | payer OTHER, SELFPAY ==
[2024-11-17 11:16] VITALS: BP 139/70; PULSE 78; RESP 16; O2SAT 97; BMI 32.4
--- NOTE | 2024-11-17 11:16 | A.OFFVIS_ITS ---
Vital Signs 11/17/24 11:16 Height 5 ft 5 in Weight 195 lb BMI 32.4 BP 139/70 Blood Pressure Location Rt brachial Position Sitting Respiration 16 Pulse 78 Pulse Source Pulse Oximeter Pulse Oximetry (%) 97 Oxygen Delivery Method Room Air Intake Visit Reasons: PILL COUNT Intake Note: Patient here for a film count routine of Belbuca. Per directions patien should have 26 films. Patient presented 25 films. Last took 8:45am. Accompanied by: Self / Same As Patient Allergies penicillin G Allergy (Verified 11/17/24 11:24) unknown HPI Comments Details: Teetee presents to the office for follow up chronic pain and chronic medication management. Patient is prescribed Belbuca 900 mcg, 1 film twice daily as needed. Patient arrived today with the expectation of having 26 films, she presented 25 films which were counted in the presence of two staff members and returned to the patient in the original prescription container. This demonstrates responsible attitude toward patient's opioid medications. Pain is reported today as 9/10 and last dose of pain medication was taken at 08:45 this morning. Patient denies side effects including somnolence, itching, dyspnea, rash, dizziness or weakness. [facility] Medical History (Updated 04/25/21 @ 11:48 by Dontrell Don MD) Neck pain on left side Left shoulder pain Myofascial pain on left side Lumbar radiculopathy Lumbar and sacral spondyloarthritis Review of Systems Const All systems reviewed & are unremarkable except as noted in HPI and below Physical Exam Exam Exam: General: awake, alert, oriented. Answers questions appropriately. Fully engaged in examination. Skin: warm, dry, intact HEENT: Normocephalic. Hearing intact. Cardiac: External chest normal in appearance. Respiratory: No cough, audible wheezing or stridor. Abdomen: without gross distension. MS: No obvious swelling or deformities. Able to transition from sit to stand unassisted. Ambulates with the use of a cane Neurological: Oriented to person, place, time and situation. Thought process intact. Psychiatric: Appropriate mood and affect. Good judgment and insight. Vital Signs: Last Vital Signs Pulse 78 11/17/24 11:16 Resp 16 11/17/24 11:16 BP 139/70 11/17/24 11:16 Pulse Ox 97 11/17/24 11:16 Oxygen Delivery Method Room Air 11/17/24 11:16 BMI result Body Mass Index 32.4 Assessment & Plan Assessment & Plan (1) Lumbar radiculopathy: Code(s): M54.16 - Radiculopathy, lumbar region Category: Medical (2) Chronic pain syndrome: Code(s): G89.4 - Chronic pain syndrome Category: Medical Plan Masspat was reviewed and without concerns. No obvious signs of diversion, abuse or misuse of the medications. Will send in prescription for Belbuca 900 mcg film twice daily as needed 1 refill. Patient to follow-up in the office in 2 months, sooner if needed. All questions and concerns have been answered and patient agrees with the plan. Medications: Refilled buprenorphine HCl (Belbuca) 900 mcg buccal Q12H 60 ea 1RF pain 30 days G89.4 - Chronic pain syndrome, M47.817 - Spondylosis without myelopathy or radiculopathy, lumbosacral region Coding Level of Care Code Est Pt Level 3 (51045) Complex EM visit Add On G2211 Diagnoses Lumbar radiculopathy M54.16 Chronic pain syndrome G89.4
== END 2024-11-17 11:41 | disposition home or self-care (01) ==
LOC: HO.PMC 11:14
PROVIDERS: PCP Physician Assistant; Visit Provider Registered Nurse Emergency
DX: M54.16 Radiculopathy, lumbar region (principal); G89.4 Chronic pain syndrome
CPT/HCPCS: 99213; G2211

== ENCOUNTER → 2024-11-17 11:14 | Outpatient (BNVA) | payer OTHER, SELFPAY | PROVIDERS: PCP Physician Assistant; Visit Provider Registered Nurse Emergency | DX: G89.4 Chronic pain syndrome (principal); M54.16 Radiculopathy, lumbar region | CPT/HCPCS: 99212 ==

== ENCOUNTER 2025-01-12 11:03 | Outpatient (AMB) | payer OTHER, SELFPAY ==
--- NOTE | 2025-01-12 11:04 | MHC.OFFVIS ---
Vital Signs 01/12/25 11:10 Height 5 ft 5 in Weight 195 lb BMI 32.4 BP 161/75 H Blood Pressure Location Rt brachial Position Sitting Respiration 16 Pulse 91 Pulse Source Pulse Oximeter Pulse Oximetry (%) 97 Oxygen Delivery Method Room Air Intake Visit Reasons: PILL COUNT Intake Note: Patient here for a film count of Belbuca. Per directions patient should have 32 films. Patient presented 33 films. Last took 8:30am. 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 Patient is prescribed Belbuca 900 mcg, 1 film twice daily as needed. Patient arrived today with the expectation of having 32 films, she presented 33 films which were counted in the presence of two staff members and returned to the patient in the original prescription container. This demonstrates responsible attitude toward patient's opioid medications. Pain is reported today as 9/10 and last dose of pain medication was taken at 08:30 this morning. Patient denies side effects including somnolence, itching, dyspnea, rash, dizziness or weakness. Patient endorses worsening all-over pain that she states presents as ?flares ?couple of times a year. States she recently had 1 that made it almost impossible to get out of bed perform activities of daily living. Patient has not recently done physical therapy and after discussion today she is not interested in going again. She is not had any recent injections and declines discussing options for those as well. Denies any recent imaging. Does endorse right lower back pain with radiation down the right leg. States she is unable to tolerate MRI even open MRI or MRI with Valium. She would be willing to undergo CAT scan of her lower back. [facility] Medical History (Updated 04/25/21 @ 11:48 by Dontrell Don MD) Neck pain on left side Left shoulder pain Myofascial pain on left side Lumbar radiculopathy Lumbar and sacral spondyloarthritis Review of Systems Const All systems reviewed & are unremarkable except as noted in HPI and below Physical Exam Exam Exam: General: awake, alert, oriented. Answers questions appropriately. Fully engaged in examination. Skin: warm, dry, intact HEENT: Normocephalic. Hearing intact. Cardiac: External chest normal in appearance. Respiratory: No cough, audible wheezing or stridor. Abdomen: without gross distension. MS: No obvious swelling or deformities. Able to transition from sit to stand unassisted. Ambulates with the use of a cane Neurological: Oriented to person, place, time and situation. Thought process intact. Psychiatric: Appropriate mood and affect. Good judgment and insight. Vital Signs: Last Vital Signs Pulse 91 01/12/25 11:10 Resp 16 01/12/25 11:10 BP 161/75 H 01/12/25 11:10 Pulse Ox 97 01/12/25 11:10 Oxygen Delivery Method Room Air 01/12/25 11:10 BMI result Body Mass Index 32.4 Assessment & Plan Assessment & Plan (1) Lumbar and sacral spondyloarthritis: Code(s): M47.817 - Spondylosis without myelopathy or radiculopathy, lumbosacral region Category: Medical (2) Lumbar radiculopathy: Code(s): M54.16 - Radiculopathy, lumbar region Category: Medical (3) Chronic pain syndrome: Code(s): G89.4 - Chronic pain syndrome Category: Medical Plan Masspat was reviewed and without concerns. No obvious signs of diversion, abuse or misuse of the medications. Will send in prescription for Belbuca 900 mcg film twice daily as needed [address] lumbar spine without contrast ordered for evaluation Patient to follow-up in the office in 2 months, sooner if needed. All questions and concerns have been answered and patient agrees with the plan. Orders: Orders CT lumbar spine wo IV con 01/12/25 G89.4 - Chronic pain syndrome, M47.817 - Spondylosis without myelopathy or radiculopathy, lumbosacral region, M54.16 - Radiculopathy, lumbar region Medications: Refilled buprenorphine HCl (Belbuca) 900 mcg buccal Q12H 60 ea 1RF pain 30 days G89.4 - Chronic pain syndrome, M47.817 - Spondylosis without myelopathy or radiculopathy, lumbosacral region Coding Level of Care Code Est Pt Level 3 (48395) Complex EM visit Add On G2211 Diagnoses Lumbar and sacral spondyloarthritis M47.817 Lumbar radiculopathy M54.16 Chronic pain syndrome G89.4
[2025-01-12 11:10] VITALS: BP 161/75; PULSE 91; RESP 16; O2SAT 97; BMI 32.4
--- OUTSIDE RECORDS SUMMARY | 2025-01-12 13:15 | XMS_ITS | Clinical Summary ---
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 Name Role Phone Unavailable Primary Care Provider Unavailabl e Social History Tobacco Use Types Packs/Day Years Used Date Smoking Tobacco: Never Assessed Comments Unknown Sex and Gender Information Value Date Recorded Sex Assigned at Not on file Legal Sex Female 9:22 PM EDT Gender Identity Not on file Sexual Orientation Not on file Plan of Treatment Health Maintenance Due Date Last Done Comments CT Colonography 1970 Colonoscopy 1970 Depression Screening 1970 FIT 1970 Lipid Panel 1970 SDOH Screening 1970 Sigmoidoscopy 1970 Disability Screening 1970 Alcohol/Substance Use Screening 1982 Tobacco Screening 1982 Hepatitis C Screening 1988 Hepatitis B Vaccines (1 of 3 - 19+ 3-dose series) 1989 Pap Smear 07/19/1991 Cervical Cancer Screening 2000 HPV/Cotest 2000 Mammogram 2010 Zoster Vaccines (1 of 2) 2020 COVID-19 Vaccine (3 - 2024-2 6 season) 2024 01/22/2021, 12/25/2020 Influenza Vaccine (#1) 2024 02/26/2016 FOBT 10/24/2025 10/24/2024 DTaP/Tdap/Td Vaccines (2 - T d or Tdap) 02/25/2026 02/26/2016 Colorectal Cancer Screening 10/25/2027 FIT DNA/Cologuard 10/25/2027 10/24/2024 RSV Patients and Patients Aged 60 years or older (1 - 1-dose 75+ series) 2045 HIV Screening Completed 08/29/2018 Pneumococcal Vaccine: 50+ Years Completed 11/29/2023 HIB Vaccines Aged Out No [...] patient's age to complete this topic Meningococcal Vaccine Aged Out No abelino taran eligible based on patient's age to complete this topic RSV under 20 months Aged Out No longe r eligible based on patient's age to complete this topic Rotavirus Vaccines Aged Out No longer eligible based on patient's age to complete this topic
== END 2025-01-12 11:36 | disposition home or self-care (01) ==
LOC: HO.PMC 11:03
PROVIDERS: PCP Physician Assistant; Visit Provider Registered Nurse Emergency
DX: M47.817 Spondylosis without myelopathy or radiculopathy, lumbosacral region (principal); M54.16 Radiculopathy, lumbar region; G89.4 Chronic pain syndrome
CPT/HCPCS: 99213; G2211

== ENCOUNTER → 2025-01-12 11:03 | Outpatient (BNVA) | payer OTHER, SELFPAY | PROVIDERS: PCP Physician Assistant; Visit Provider Registered Nurse Emergency | DX: G89.4 Chronic pain syndrome (principal); M47.817 Spondylosis without myelopathy or radiculopathy, lumbosacral region; M54.16 Radiculopathy, lumbar region | CPT/HCPCS: 99212 ==